=== PATIENT | male | born 1975 | race Caucasian/White ===

== ENCOUNTER 2017-08-04 02:11 | Inpatient (IN) ==
[2017-08-04] MEDS ORDERED: HYDROMORPHONE 2 MG/ML INJECTION IVP ONE (02:31)
[2017-08-04] MEDS ORDERED: PROCHLORPERAZINE 10 MG/2 ML INJECTION IVP ONE (02:31)
[2017-08-04] MEDS ORDERED: KETOROLAC 30 MG/ML INJECTION IVP ONE (02:31)
[2017-08-04] MEDS ORDERED: NS 1,000 ML IV ONE (02:32)
--- NOTE | 2017-08-04 02:38 | Emergency Department Report ---
Abdominal Pain HPI - General Stated Complaint: Severe abd pain Time Seen by Provider: 08/04/17 02:14 Source: patient, family ( is also interpreting when patient does not know the correct word) Mode of arrival: ambulatory Limitations: language barrier - History of Present Illness HPI narrative: Patient has 2 day history of right lower quadrant abdominal pain, significantly worse tonight, especially with movement or trying to lay flat. Patient has been having mild nausea but without vomiting. No fevers, no constipation, no diarrhea. MD complaint: abdominal pain Onset (ago): day(s) Severity: severe Severity scale (1-10): 10 - Related Data Home Medications Medication Instructions Recorded Confirmed Isoniazid 300 mg PO DAILY #0 01/23/09 Pyridoxine HCl (Vitamin B6) 50 mg PO DAILY #0 01/23/09 [Pyridoxine HCl] Sucralfate 1 g PO QID #0 01/23/09 Allergies Allergy/AdvReac Type Severity Reaction Status Date / Time No Known Drug Allergies Allergy Unknown Verified 08/04/17 03:42 Review of Systems All systems: reviewed and negative except as stated PFSH none Surgical History: none - Social History Smoking status: Never smoker Substance use type: does not use Alcohol intake frequency: does not drink Physical Exam - Limitations Limitations: no limitations - General General appearance: alert - Normal Exams: Head:: Normocephalic without trauma Eyes:: Pupils are PERRLA w/ EOMI, No scleral icterus, irritation, or foreign bodies noted ENMT:: No facial trauma, nasal exudates, pharyngeal erythema, or exudates are noted Neck:: Full range of motion, without adenopathy, JVD, bruits or thyromegaly Chest/Respirations:: Clear all cervantes, with good airflow, and symmetry bilaterally Cardiovascular:: Regular rate and rhythm, without murmur or gallop, Pulses 2+ all extremities, capillary refill, <2 seconds all extremities Lymphatic:: No lymphadenopathy, or lymphedema noted Musculoskeletal:: No tenderness, or deformity noted, good range of motion, all extremities Integumentary:: No rashes, hives, or bruising noted, hair and nails, without abnormality Neurological:: Patient is alert, and oriented, cranial nerves, motor/sensory/ cerebellar, exams w/o gross deficits, to observation Psychiatric:: Patient exhibits, appropriate attention, emotion and affect - Abdominal Exam Abdominal exam: Present: soft, distention, tenderness (significant right lower quadrant tenderness with left to right referral), guarding, rebound, hypoactive bowel sounds. Absent: trauma, incision, psoas sign, obturator sign, Hewitt's sign, Rovsing's sign, tenderness at McBurney's Point, mass, bruit, pulsatile mass, hernia, scar Abdominal Pain - [facility] Narrative Medical decision making narrative: Given Toradol, Compazine, and 0.5 mg Dilaudid with 1 L normal saline IV fluid bolus - CBC - significant elevation of white blood cell count at 18,000, minimal left shift CMP/L - normal UA - CT abdomen/pelvis - positive appendicitis with dilated appendix, thickened appendiceal [place], and significant periappendiceal inflammatory changes. Patient discussed with Dr. Madrigal, will admit for acute appendicitis - Lab Data Result diagrams: 08/04/17 02:43 08/04/17 02:43 Disposition Clinical Impression: Appendicitis Qualifiers: Appendicitis type: acute appendicitis Acute appendicitis type: with localized peritonitis Qualified Code(s): K35.3 - Acute appendicitis with localized peritonitis Disposition: 02 To [facility] Condition: Improved Prescriptions: No Action Isoniazid 300 mg PO DAILY #0 Pyridoxine HCl (Vitamin B6) [Pyridoxine HCl] 50 mg PO DAILY #0 Sucralfate 1 g PO QID #0 Referrals: Michel Maldonado MD [Family Provider] - - Seen By: physician
[2017-08-04] MEDS ORDERED: SALINE FLUSH 10ml SYRINGE ONE (03:10)
[2017-08-04] MEDS ORDERED: IOHEXOL 300mg/ml 100ml INJECTION ONE (03:10)
[2017-08-04] MEDS ORDERED: NS 100 ML ONE (03:10)
[2017-08-04] MEDS ORDERED: ONDANSETRON 4 MG/2 ML INJECTION IVP PRN ×2 (04:06→10:18)
[2017-08-04] MEDS ORDERED: NS 1,000 ML IV SCH (04:15)
[2017-08-04 04:59] VITALS: BMI 23.1
[2017-08-04] MEDS ORDERED: ERTAPENEM 1 G in NS 100 ML IV ONE (07:30)
[2017-08-04] MEDS ORDERED: ACETAMINOPHEN 325 MG SUPPOSITORY PR ONE (07:30)
[2017-08-04] MEDS ORDERED: BUPIVACAINE 0.25% (2.5mg/ml) PF 30ml INJECTION ONE (07:48)
--- NOTE | 2017-08-04 07:59 | CT Scan Report ---
Indication: RLQ pain PROCEDURE: CT abdomen pelvis w con: Encounter: Initial Comparison: None Technique: Axial CT images were performed through the abdomen and pelvis after the administration of intravenous contrast. Coronal and sagittal two-dimensional reformats. Automated Exposure Control and Iterative Reconstruction dose reducing techniques were utilized. Contrast: Omnipaque 300 89 mL Findings: Mild atelectasis in the lung bases. The liver appears normal. The gallbladder is unremarkable. Small hiatal hernia. The spleen, pancreas, adrenal glands and kidneys are within normal limits. No abdominal or pelvic lymphadenopathy. Bladder is normal. Prostate and rectum are unremarkable. No evidence of a bowel obstruction. Fluid-filled small and large bowel. There is an enlarged inflamed appendix with wall thickening present. This measures up to 11 mm in thickness and has adjacent inflammatory stranding and a small amount of fluid along the right lateral conal fascia. Small amount of free pelvic fluid also noted. Bone windows show mild degenerative change in the spine. Impression: Acute appendicitis with possible perforation. Emergent surgical consultation is recommended. There is a preliminary report by [employer]. .
--- NOTE | 2017-08-04 08:10 | Anesthesia Preoperative Report ---
Anesthesia Preoperative Record - Date and Time Date: 08/04/17 Preoperative Diagnosis: Acute Appendicitis Proposed Procedure: Lap Appy NPO Since Date: 08/04/17 NPO Since Time: 00:00 Allergies/Adverse Reactions: Allergies Allergy/AdvReac Type Severity Reaction Status Date / Time No Known Drug Allergies Allergy Unknown Verified 08/04/17 03:42 - Vital Signs Vital Signs: Temperature 103.2 F H 08/04/17 07:10 Pulse Rate 100 08/04/17 07:10 Respiratory Rate 16 08/04/17 07:10 Blood Pressure 136/73 08/04/17 07:10 Pulse Oximetry 95 08/04/17 07:10 Height and Weight: Height 1.73 m Weight 69 kg Body Mass Index 23.1 - Medications Inpatient Medications: Current Medications Hydromorphone HCl (Dilaudid) 0.5 mg IVP Q3H PRN PRN Reason: Pain Sodium Chloride (Normal Saline) 1,000 mls @ 75 mls/hr IV .[id number] DIONY Last Infusion: 08/04/17 08:03 Dose: 0 mls/hr Ondansetron HCl (Zofran) 4 mg IVP Q6H PRN PRN Reason: Nausea &/or vomiting Sodium Chloride (Iv Flush) 10 - 80 ml IVF PRN PRN PRN Reason: [place] Home Medications: Home Medications Medication Instructions Recorded Confirmed Type No known Home medications [No home 08/04/17 08/04/17 History meds] Is Patient on Beta [place]?: No - Surgical History Anesthesia Reactions: None Hx Family Anesthesia Reaction: No History of Motion Sickness: No - Social History Smoking Status: Never smoker Hx Chewing Tobacco Use: No Second Hand Exposure: No Alcohol Intake Frequency: 0-2 drinks per day - Pertinent Findings EKG Rhythm: Normal Sinus Rhythm - Physical Exam Respiratory Exam: Present: lungs clear Cardiovascular Exam: Present: regular rate and rhythm - Airway Assessment Mallampati Score: II TMD: 3 Fingerbreadths Neck Extension: good Overall Assessment: no airway concerns - ASA ASA Score: 2 - Plan Anesthesia: General Inhalation Gases - Discussion Discussion: Discussed risks/options/alternatives of anesthesia and questions answered. Patient consents. Nursing pain assessment noted. Present for Discussion: family member Attestation Statement: Prior to the delivery of any anesthetic medication, I examined the patient, developed the plan, obtained the patient's consent and discussed the risk and benefits of the procedure with the patient/guardian. - Additional Information Seen by Anesthesia: Yes
[2017-08-04] MEDS ORDERED: PROPOFOL 20 ML ONE (08:20)
[2017-08-04] MEDS ORDERED: SUCCINYLCHOLINE 20mg/mL 10mL INJECTION ONE (08:20)
[2017-08-04] MEDS ORDERED: VECURONIUM 10 MG/10 ML VIAL IV ONE (08:20)
[2017-08-04] MEDS ORDERED: LIDOCAINE 2% (100mg/5mL) PF 5ml vl ONE (08:20)
[2017-08-04] MEDS ORDERED: FentaNYL 100 MCG/2 ML INJECTION ONE (08:21)
[2017-08-04] MEDS: NS 1,000 ML IV SCH ×2 (08:26→09:35)
--- NOTE | 2017-08-04 09:09 | History and Physical ---
HPI This patient is 42 years old. This patient developed the onset of abdominal pain on the evening of 08/01/2017. The patient continued to have the pain on and 08/03/2017. The pain did localize down to the right lower quadrant of the abdomen during this time. The patient had some mild nausea but no vomiting. He had no diarrhea. The patient did come into [facility] Emergency Room for evaluation of the abdominal pain early on the morning of 08/04/2017. The patient was found to have leukocytosis at evaluation at the emergency room. The patient did undergo a CT scan of the abdomen and pelvis during evaluation at the emergency room and the CT scan of the abdomen and pelvis does show acute appendicitis. PAST MEDICAL HISTORY Previous Operations: None. OTHER CURRENT MEDICAL PROBLEMS Nicotine dependence. SOCIAL HISTORY The patient lives in [place], [place]. He is . He works for [employer]. The patient does smoke cigarettes. CURRENT MEDICATIONS None. ALLERGY HISTORY The patient has no known allergies to medications. PHYSICAL EXAMINATION VITAL SIGNS: Temperature is 103.2 degrees Fahrenheit. Pulse is 100. Respiratory rate is 16. Blood pressure is 136/73. Oxygen saturation is 95% on room air. Height is 1.73 meters. Weight is 69 kg. BMI is 23.1 kg/m2. HEAD , EYES, EARS, NOSE AND THROAT: No abnormalities noted. NECK: No neck masses. CHEST: Lung sounds are clear. HEART: Regular rhythm. No murmurs. ABDOMEN: The abdomen is soft. No old incision scars. No abdominal masses. The patient does have generalized abdominal tenderness. The tenderness is most pronounced at the right lower quadrant of the abdomen. RECTUM: Exam deferred. EXTREMITIES: No abnormalities noted. LABORATORY DATA White blood cell count is 18,400. Total bilirubin was 1.4. AST, ALT and alkaline phosphatase were all normal. Serum lipase is 19. Serum electrolytes are normal. Serum creatinine is 0.9. Hemoglobin is 16.1. Hematocrit is 46.7. IMAGING DATA The patient did undergo a CT scan of the abdomen and pelvis early on the morning of 08/04/2017 at [facility]. This does show a dilated appendix with thickening of the wall of the appendix and adjacent inflammatory changes at the right lower quadrant of the abdomen. These findings are thought to be consistent with acute appendicitis. There is no abscess identified. There is a small amount of free fluid. There is no free air identified. IMPRESSION 1. Acute appendicitis. 2. Nicotine dependence. PATIENT EDUCATION I did talk with the patient and his about treatment of the acute appendicitis. I did describe to them [id number] the nature of a laparoscopic appendectomy operation. I did tell the patient and his that the laparoscopic appendectomy operation might need to be converted over to a laparotomy with open appendectomy operation. I did describe to them how this is performed. Expected benefits of the operation were reviewed. Alternatives were reviewed. Potential risks and complications were also reviewed including anesthetic risk, bleeding, infection, poor wound healing and injury to intraabdominal and retroperitoneal structures. Questions were solicited from the patient and his . All their questions were answered. The patient and his do wish to have the patient proceed with the operation. PLAN Laparoscopic appendectomy with possible conversion to laparotomy with open appendectomy by Dr. Madrigal at [facility]. The patient has been given intravenous fluids. The patient has been given intravenous Invanz. The patient is being kept n.p.o. [facility]
[2017-08-04] MEDS ORDERED: HYDROMORPHONE 2 MG/ML INJECTION ONE (09:10)
[2017-08-04] MEDS ORDERED: DEXAMETHASONE 4 MG/ML INJECTION ONE (09:22)
[2017-08-04] MEDS ORDERED: ONDANSETRON 4 MG/2 ML INJECTION ONE (09:22)
[2017-08-04] MEDS ORDERED: BUPIVACAINE 0.25% (2.5mg/ml) PF 30ml INJECTION ID ONE (09:39)
[2017-08-04] MEDS ORDERED: DESFLURANE 240ml LIQUID IH ONE (09:56)
[2017-08-04] MEDS ORDERED: SEVOFLURANE 250ml LIQUID IH ONE (09:58)
[2017-08-04] MEDS ORDERED: NEOSTIGMINE 10 MG/10 ML INJECTION ONE (10:05)
[2017-08-04] MEDS ORDERED: GLYCOPYRROLATE 0.4 MG/2 ML INJECTION ONE (10:05)
--- NOTE | 2017-08-04 10:06 | General Surgery Procedure Note ---
Date of Procedure: 08/04/17 Surgeon: Kaitlin Postoperative Diagnosis: Acute appedicitis with perforation Procedure: Laparoscopic appendectomy. Estimated Blood Loss: See Anesthesia Record.
[2017-08-04] MEDS ORDERED: NALOXONE 0.4 MG/ML INJECTION ONE (10:13)
[2017-08-04] MEDS ORDERED: HYDROMORPHONE 2 MG/ML INJECTION IVP PRN (10:18)
[2017-08-04] MEDS ORDERED: METOCLOPRAMIDE 10mg/2ml INJECTION IVP PRN (10:18)
[2017-08-04] MEDS: HYDROMORPHONE 2 MG/ML INJECTION IVP PRN ×2 (10:38→10:47)
--- NOTE | 2017-08-04 10:56 | Anesthesia Postoperative Note ---
- Date and Time Date: 08/04/17 Time: 00:00 - Status Patient Participated in Evaluation: Patient Participated in Person Vital Signs: Temperature 99.4 F 08/04/17 10:15 Pulse Rate 90 08/04/17 10:50 Respiratory Rate 13 08/04/17 10:50 Blood Pressure 129/68 08/04/17 10:50 Pulse Oximetry 96 08/04/17 10:50 Respiratory Function: Airway Patent Cardiovascular Function: Regular Pulse Mental Status: Alert and Oriented Pain Intensity: 5 Hydration: IV Infusing Complications During Recover: None Apparent - Follow-Up Instructions Instructions: Per Surgeon
[2017-08-04] MEDS ORDERED: PROMETHAZINE 25 MG INJECTION IVP PRN (11:10)
[2017-08-04] MEDS ORDERED: FAMOTIDINE PB 20 MG/50 ML BAG IV SCH (11:10)
[2017-08-04] MEDS: D5-1/2NS with KCL 20mEq 1,000 ML IV SCH ×2 (11:28→23:32)
[2017-08-04] MEDS: PIPERACILLIN/TAZOBACTAM 3.375 GM in NS 100 ML IV SCH ×3 (11:42→23:41)
[2017-08-04] MEDS: FAMOTIDINE PB 20 MG/50 ML BAG IV SCH ×2 (12:33→20:52)
[2017-08-04] MEDS: MORPHINE SULFATE 10 MG SYRINGE IV PRN ×2 (15:31→19:34)
--- NOTE | 2017-08-04 15:51 | Operative Note ---
DATE OF OPERATION 08/04/2017 PREOPERATIVE DIAGNOSIS Acute appendicitis. POSTOPERATIVE DIAGNOSIS Acute appendicitis with perforation and periappendiceal abscess. OPERATION Laparoscopic appendectomy. SURGEON Dixon Madrigal MD ANESTHESIA General ASA CLASS 2 FINDINGS The patient did have severe advanced acute appendicitis. The entire appendix appeared necrotic. There was an opening at the base of the appendix from perforation of the appendix. There was stool coming out through this opening of the appendix into the peritoneal cavity. The appendix and the stool that had come out around the appendix was walled off. The patient had a periappendiceal abscess filled with stool. One wall of this abscess was the cecum. The cecum was therefore thickened and inflamed and firm. The cecum was not soft and pliable. There was a walled off periappendiceal abscess with stool in it. There was some purulent fluid in the pelvis. There did not appear to be generalized peritonitis. Loops of intestine out a ways from the appendix appeared normal. The liver appeared normal. The gallbladder appeared normal. DESCRIPTION OF OPERATION The patient was placed in the supine position on the operating table. General anesthesia was satisfactorily induced. A Jain catheter was inserted into the urinary bladder. The abdomen was prepped and draped in routine sterile fashion. The skin and underlying structures at the abdominal wall at an infraumbilical incision site were infiltrated with bupivacaine 0.25% without epinephrine. An infraumbilical incision was made. A Veress needle was inserted into the peritoneal cavity through the incision. Pneumoperitoneum was established with carbon dioxide. The Veress needle was removed. A 5 mm port was placed at the infraumbilical incision. The 5 mm laparoscope was inserted through the 5 mm infraumbilical port. The skin and underlying abdominal wall structures were infiltrated with bupivacaine at the lateral margin of the right rectus abdominis muscle at the right upper quadrant of the abdomen at another incision site. An incision was made at this location and a 5 mm port was placed at the right upper quadrant abdominal incision. The skin and underlying abdominal wall structures were infiltrated with bupivacaine at a suprapubic incision site. A suprapubic incision was made at the midline. A 12 mm port was placed at the suprapubic incision. The peritoneal cavity was examined with the laparoscope. The operating table was placed in Trendelenburg position. The right side of the operating table was rolled up. Structures at the right lower quadrant of the abdomen which were adherent to one another were bluntly from one another with the suction irrigation device and the endoscopic [place] forceps. The appendix was exposed. The appendix was grasped and elevated with the endoscopic [place] forceps inserted at the suprapubic port. The appendix and mesoappendix were bluntly dissected free of surrounding structures. An opening was visualized near the base of the appendix with stool pouring out of the opening. There did appear to be a collection of walled off stool around the appendix where the patient had a periappendiceal abscess. The peritoneum at the inferior end of the right lateral gutter along the white line of [place] was divided with the curved dissecting scissors. The cecum and proximal ascending colon were then mobilized up away from the right lateral abdominal wall. This did mobilize the cecum up anteriorly and medially. The appendix was again grasped and elevated with the endoscopic [place] forceps inserted at the suprapubic port. The mesoappendix was divided with the Ethicon brand 5 mm laparoscopic ultrasonically activated coagulating fawn. This was the Harmonic Martir ultrasonic fawn. This instrument was introduced at the right upper quadrant port. The mesoappendix was coagulated and divided with the Ethicon brand 5 mm laparoscopic ultrasonically activated coagulating fawn. The appendix was completely freed up in this manner to the point where the base of the appendix joined the cecum. The base of the appendix at the point where it joined the cecum did appear to be viable enough that some Endoloop ligatures could be applied to the base of the appendix adjacent to the cecum. The appendix distally beyond this point was necrotic but there did appear to be some good quality viable appendix at the base of the appendix where it joined to the cecum. Two separate 0 PDS Endoloop ligatures were applied to the base of the appendix adjacent to the cecum. The appendix was then divided just beyond these ligatures with the curved dissecting scissors. The appendix was placed in a specimen retrieval pouch. The specimen retrieval pouch containing the appendix was brought out through the suprapubic incision. The appendix was submitted as a specimen for study by the pathologist. The 12 mm port was reinserted at the suprapubic incision. The appendectomy site looked good. The appendiceal stump was carefully examined at this time and the appendiceal stump looked good. The appendiceal stump looked viable. Hemostasis was satisfactory at the appendectomy site. Irrigation was then performed throughout the right lower quadrant of the abdomen around the cecum. Irrigation was performed at the periappendiceal abscess cavity site. Irrigation was performed down in the pelvis and down at the pelvic cul-de-sac area. Irrigation was performed at the right lateral gutter. Irrigation fluid was removed. Irrigation was continued until all the irrigation return was clear. Hemostasis remained satisfactory everywhere. The suprapubic port was removed. The right upper quadrant port was removed. The laparoscope was removed. The infraumbilical port was removed. Carbon dioxide was removed from the peritoneal cavity by desufflation. The fascial layer of the suprapubic incision was closed with a series of simple interrupted stitches using 0 Vicryl suture. Skin margins were then closed at all the incisions with subcuticular stitches using 4-0 Vicryl suture. Benzoin and 1/2-inch wide Steri-Strips were applied to the incisions. Sterile dressings were applied. The patient tolerated the operation well. The patient was transferred from the operating room to the recovery room in satisfactory condition. JOSE
[2017-08-05] MEDS: PIPERACILLIN/TAZOBACTAM 3.375 GM in NS 100 ML IV SCH ×4 (04:18→23:37)
[2017-08-05] MEDS: MORPHINE SULFATE 10 MG SYRINGE IV PRN ×7 (04:55→21:20)
[2017-08-05] MEDS: FAMOTIDINE PB 20 MG/50 ML BAG IV SCH ×2 (08:50→21:15)
[2017-08-05] MEDS: SALINE FLUSH 10ml SYRINGE IVF PRN ×3 (11:19→21:21)
[2017-08-05] MEDS: D5-1/2NS with KCL 20mEq 1,000 ML IV SCH ×3 (12:34→23:37)
[2017-08-05] MEDS: ONDANSETRON 4 MG/2 ML INJECTION IVP PRN (20:18)
[2017-08-06] MEDS: MORPHINE SULFATE 10 MG SYRINGE IV PRN ×6 (01:53→21:24)
[2017-08-06] MEDS: KETOROLAC 30 MG/ML INJECTION IVP PRN ×3 (04:30→17:58)
[2017-08-06] MEDS: PIPERACILLIN/TAZOBACTAM 3.375 GM in NS 100 ML IV SCH ×4 (05:15→23:50)
[2017-08-06] MEDS: FAMOTIDINE PB 20 MG/50 ML BAG IV SCH ×2 (08:53→21:24)
--- NOTE | 2017-08-06 09:21 | Progress Note ---
DATE 08/05/2017 POSTOP DAY #1 HISTORY The patient is having less pain than he had at the time of admission to the hospital. He has been doing quite a bit of ambulating in the halls. He is receiving intravenous Zosyn. The patient has not passed any flatus or had a bowel movement since the operation. He is not having any nausea or vomiting. PHYSICAL EXAMINATION VITAL SIGNS: Temperature is 99.5 degrees Fahrenheit oral. Pulse is 86. Respiratory rate is 20. Blood pressure 139/84. Oxygen saturation is 94% on room air. ABDOMEN: The abdomen is distended and tympanic. The abdominal incisions all look good. LABORATORY DATA White blood cell count is 11,000 today with 10 bands. Hemoglobin is 13.4. Hematocrit is 39.4. Platelet count is 116,000. The blood cultures on a specimen obtained preoperatively yesterday are negative at 24 hours. There is no growth after 24 hours on these blood cultures obtained at the time when the patient had a temperature elevation up to 103 degrees. IMPRESSION 1. Doing well overall following laparoscopic appendectomy on 08/04/2017 for treatment of acute appendicitis with perforation and periappendiceal abscess. 2. Thrombocytopenia. PLAN 1. Continue intravenous Zosyn every 6 hours. 2. Continue ambulation. 3. Start a clear liquid diet. 4. Continue sequential compression devices for deep venous thrombosis prophylaxis. 5. Continue to monitor temperature and white blood cell count and differential. 6. Recheck platelet count tomorrow. [facility]
[2017-08-06] MEDS: D5-1/2NS with KCL 20mEq 1,000 ML IV SCH (13:00)
[2017-08-06] MEDS ORDERED: ACETAMINOPHEN 325 MG TABLET PO PRN (16:38)
[2017-08-06] MEDS: SALINE FLUSH 10ml SYRINGE IVF PRN ×2 (16:46→21:26)
[2017-08-07] MEDS: D5-1/2NS with KCL 20mEq 1,000 ML IV SCH ×4 (01:51→18:12)
[2017-08-07] MEDS: MORPHINE SULFATE 10 MG SYRINGE IV PRN ×3 (03:34→17:02)
[2017-08-07] MEDS: SALINE FLUSH 10ml SYRINGE IVF PRN ×3 (03:34→22:21)
[2017-08-07] MEDS: ACETAMINOPHEN 500 MG TABLET PO PRN ×2 (04:08→16:24)
[2017-08-07] MEDS: NS FLUSH BAG 500ml IV ONE ×2 (04:09→04:18)
[2017-08-07] MEDS: PIPERACILLIN/TAZOBACTAM 3.375 GM in NS 100 ML IV SCH ×4 (05:24→23:32)
[2017-08-07] MEDS: KETOROLAC 30 MG/ML INJECTION IVP PRN ×3 (07:58→22:21)
[2017-08-07] MEDS: FAMOTIDINE PB 20 MG/50 ML BAG IV SCH ×2 (08:02→22:07)
[2017-08-08] MEDS: MORPHINE SULFATE 10 MG SYRINGE IV PRN ×3 (01:12→20:43)
[2017-08-08] MEDS: SALINE FLUSH 10ml SYRINGE IVF PRN (01:13)
[2017-08-08] MEDS: PIPERACILLIN/TAZOBACTAM 3.375 GM in NS 100 ML IV SCH ×3 (04:40→17:03)
[2017-08-08] MEDS: KETOROLAC 30 MG/ML INJECTION IVP PRN ×3 (05:27→18:10)
[2017-08-08] MEDS: D5-1/2NS with KCL 20mEq 1,000 ML IV SCH ×2 (06:43→16:57)
--- NOTE | 2017-08-08 06:55 | Progress Note ---
DATE 08/06/2017 POSTOP DAY #2 HISTORY The patient did have a temperature elevation up to 100.6 degrees Fahrenheit oral at 2000 hours on 08/05/2017. The patient had a temperature elevation up to 101.3 degrees Fahrenheit oral at 2357 hours on 08/05/2017. A clear liquid diet was started yesterday evening. The clear liquid diet was stopped this morning and the diet was changed back to n.p.o. with ice chips when the patient had some increased abdominal pain and increase in his abdominal distention. The patient is back to an n.p.o. except for ice chips diet at this time. He is ambulating in the halls well. He has really not passed any flatus or had a bowel movement since his operation. He is not having nausea or vomiting. PHYSICAL EXAMINATION VITAL SIGNS: Temperature is 96.7 degrees Fahrenheit oral at the present time. Pulse is 72. Respiratory rate is 24. Blood pressure is 132/85. Oxygen saturation is 95% on room air. ABDOMEN: The abdomen is quite distended and tympanic today. The distention and tympany are worse today than they were yesterday. The abdominal incisions look good. LABORATORY DATA White blood cell count is 10,600 with 2 bands today. Hemoglobin is 14. Hematocrit is 40.5. Serum sodium is 133. Serum potassium is 4.2. Procalcitonin is 2.37 today. Blood cultures on specimens obtained preoperatively on 08/04/2017 show no growth at two days. IMPRESSION 1. Doing well overall following laparoscopic appendectomy on 08/04/2017 for treatment of acute appendicitis with perforation and periappendiceal abscess. 2. Sepsis. 3. Postoperative ileus. PLAN 1. Continue intravenous Zosyn every 6 hours. 2. Continue ambulation. 3. Hold diet to ice chips only until ileus improves. 4. Continue sequential compression devices for deep venous thrombosis prophylaxis. 5. Continue to monitor temperature and white blood cell count with differential and procalcitonin. [facility]
--- NOTE | 2017-08-08 08:01 | Progress Note ---
DATE 08/07/2017 POSTOP DAY #3 HISTORY The patient did have a temperature of 102.4 degrees Fahrenheit oral at 1634 hours yesterday. The patient began passing flatus today. He has passed flatus three or four times. He has had a bowel movement today. The patient continues to ambulate in the halls. The patient continues to receive IV Zosyn. PHYSICAL EXAMINATION VITAL SIGNS: The patient did have a temperature of 101.2 degrees Fahrenheit oral at 0343 hours this morning. Most recent temperature was 98.1 degrees Fahrenheit oral. Pulse is 81. Respiratory rate is 16. Blood pressure is 149/ 97. Oxygen saturation is 97% on room air. ABDOMEN: The abdomen is still quite distended and tympanic today. The abdominal incisions look good. There is abdominal tenderness. LABORATORY DATA White blood cell count is 9,400 with no bands today. Hemoglobin is 13.2. Hematocrit is 37.6. Serum sodium is 136. Serum potassium is 4.1. Serum creatinine is 0.8. Total bilirubin is 2.9. Procalcitonin is 1.12 today. This is much less than yesterday. Plasma lactate is 0.9. IMPRESSION 1. Doing well overall following appendectomy on 08/04/2017 for treatment of acute appendicitis with perforation and periappendiceal abscess. 2. Sepsis which is improving. 3. Postoperative ileus which is beginning to resolve. PLAN 1. Continue intravenous Zosyn every 6 hours. 2. Continue ambulation. 3. Continue to keep patient n.p.o. except for ice chips until the abdominal distention and tympany improve. 4. Continue sequential compression devices for deep venous thrombosis prophylaxis. 5. Continue to monitor temperature, white blood cell count and procalcitonin. [facility]
[2017-08-08] MEDS: FAMOTIDINE PB 20 MG/50 ML BAG IV SCH ×2 (08:31→20:48)
[2017-08-08] MEDS: ACETAMINOPHEN 500 MG TABLET PO PRN (08:31)
[2017-08-08] MEDS: ONDANSETRON 4 MG/2 ML INJECTION IVP PRN (12:42)
[2017-08-08] MEDS ORDERED: PPN - PHARMACY CONSULT MC ONE (16:40)
[2017-08-08] MEDS ORDERED: MULTI-VIT INFUSION 10 ML, MULTI-TRACE ELEMENTS 1 ML in PPN - STANDARD FORMULA 2,000 ML IV SCH (18:00)
[2017-08-08] MEDS: MULTI-VIT INFUSION 10 ML, MULTI-TRACE ELEMENTS 1 ML in PPN - STANDARD FORMULA 2,000 ML IV SCH (18:31)
[2017-08-08] MEDS: METOCLOPRAMIDE 10mg/2ml INJECTION IVP SCH (20:43)
[2017-08-09] MEDS: KETOROLAC 30 MG/ML INJECTION IVP PRN ×3 (00:16→19:53)
[2017-08-09] MEDS: PIPERACILLIN/TAZOBACTAM 3.375 GM in NS 100 ML IV SCH ×5 (00:19→23:21)
[2017-08-09] MEDS: METOCLOPRAMIDE 10mg/2ml INJECTION IVP SCH ×4 (03:25→20:14)
[2017-08-09] MEDS: MORPHINE SULFATE 10 MG SYRINGE IV PRN ×2 (03:34→07:53)
[2017-08-09] MEDS: ACETAMINOPHEN 500 MG TABLET PO PRN ×2 (06:19→13:38)
--- NOTE | 2017-08-09 07:53 | Progress Note ---
DATE 08/08/2017 POSTOP DAY #4 HISTORY The patient has now been afebrile for the past 24 hours. The patient did have two or three more bowel movements today. The patient did, however, have some nausea and dry heaves today. The patient continues to receive intravenous Zosyn. The patient is ambulating. The patient is still using intravenous morphine for treatment of gas pains. PHYSICAL EXAM VITAL SIGNS: The patient has now been afebrile for the last 24 hours. Temperature is 97.4 degrees Fahrenheit oral. Pulse is 73. Respiratory rate is 16. Blood pressure is 135/91. Oxygen saturation is 98% on room air. ABDOMEN: The abdomen is very distended and tympanic again today. This is not improved since yesterday. The abdominal incisions all look good. LABORATORY DATA White blood cell count is 8,600 with no bands today. Procalcitonin is 0.68 today. IMPRESSION 1. Doing well overall following laparoscopic appendectomy on 08/04/2017 for treatment of acute appendicitis with perforation and periappendiceal abscess. 2. Sepsis which is improving. 3. Prolonged postoperative ileus with nausea, dry heaves, abdominal distention and abdominal tympany. PLAN 1. Continue intravenous Zosyn every 6 hours. 2. Continue ambulation. 3. Continue to keep patient n.p.o. except for ice chips until the nausea, dry heaves, abdominal distention and abdominal tympany improve. 4. Continue sequential compression devices for deep venous thrombosis. 5. Continue to monitor temperature, white blood cell count and procalcitonin. 6. Stop the D5 half-normal saline with 20 mEq KCl per liter and start the patient on PPN at this time for nutritional support. 7. Start Reglan 10 mg IV every 6 hours. MTDD
--- NOTE | 2017-08-09 08:21 | XRay Report ---
Indication: Postop ileus PROCEDURE: XR KUB w upright: Encounter: Initial Comparison: CT abdomen dated August 04, 2017 Findings: Small pleural effusions and lower lobe atelectasis. No gross free air. Dilated small bowel loops with air-fluid levels measuring up to 4 cm in the left abdomen. Scattered small amounts of colonic gas also present. Bone windows are unremarkable. Impression: Small greater than large bowel distention with air-fluid levels could represent postoperative ileus or less likely small bowel obstruction. .
[2017-08-09] MEDS: FAMOTIDINE PB 20 MG/50 ML BAG IV SCH ×2 (09:52→20:14)
--- NOTE | 2017-08-09 14:32 | Progress Note ---
DATE 08/09/2017 POSTOP DAY #5 HISTORY The patient is ambulating. The patient continues to pass some flatus. The patient continues to receive intravenous Zosyn. PHYSICAL EXAMINATION VITAL SIGNS: The patient has been afebrile for the last 24 hours. The most recent temperature is 99.4 degrees Fahrenheit oral. Pulse is 79. Respiratory rate is 20. Blood pressure is 151/88. Oxygen saturation is 97% on room air. ABDOMEN: The abdomen remains distended and tympanic. The abdomen is soft. The patient has active bowel sounds. The abdominal incisions look good. LABORATORY DATA White blood cell count is 8600 with 1 band. Electrolytes are all normal. Serum creatinine is 0.8. Procalcitonin is 0.38. IMAGING DATA KUB and upright abdominal x-rays were performed this morning. These show dilated small bowel loops with air-fluid levels. There are some scattered small amounts of gas present throughout the colon. The radiologist thought that the appearance would be most consistent with postoperative ileus. Small bowel obstruction would be a less likely explanation for the bowel gas pattern. IMPRESSION 1. Doing well overall following laparoscopic appendectomy on 08/04/2017 for treatment of acute appendicitis with perforation and periappendiceal abscess. 2. Prolonged postoperative ileus. PLAN 1. Continue intravenous Zosyn every 6 hours. 2. Continue ambulation. 3. Continue sequential compression devices for deep venous thrombosis prophylaxis. 4. Continue PPN for nutritional support. 5. Continue Reglan 10 mg IV every 6 hours. 6. Start clear liquid diet again today and see how patient tolerates this. 7. Stop intravenous morphine and transition to Toradol which the patient is already receiving and Tylenol for pain control. This would stop all postop narcotic pain control to try to help the ileus resolve. [facility]
[2017-08-09] MEDS ORDERED: FAT EMULSION 20% 100 ML BAG IV SCH (16:00)
[2017-08-09] MEDS: SALINE FLUSH 10ml SYRINGE IVF PRN (16:32)
[2017-08-09] MEDS: FAT EMULSION 20% 100 ML IV SCH (16:32)
[2017-08-09] MEDS: MULTI-VIT INFUSION 10 ML, MULTI-TRACE ELEMENTS 1 ML in PPN - STANDARD FORMULA 2,000 ML IV SCH (16:44)
[2017-08-10] MEDS: ACETAMINOPHEN 500 MG TABLET PO PRN ×2 (03:54→16:32)
[2017-08-10] MEDS: METOCLOPRAMIDE 10mg/2ml INJECTION IVP SCH ×4 (03:54→22:11)
[2017-08-10] MEDS: PIPERACILLIN/TAZOBACTAM 3.375 GM in NS 100 ML IV SCH (05:25)
[2017-08-10] MEDS: SALINE FLUSH 10ml SYRINGE IVF PRN (05:30)
[2017-08-10] MEDS: KETOROLAC 30 MG/ML INJECTION IVP PRN (06:48)
[2017-08-10] MEDS: FAMOTIDINE PB 20 MG/50 ML BAG IV SCH ×2 (08:41→22:10)
[2017-08-10] MEDS: MetroNIDAZOLE PB 500 MG/100 ML BAG IV SCH ×3 (09:42→20:52)
[2017-08-10] MEDS: VANCOMYCIN 250mg/5ml ORAL LIQ PO SCH ×4 (09:43→20:57)
--- NOTE | 2017-08-10 11:44 | Pharmacy Consult-TPN/PPN ---
Pharmacy Consult-TPN/PPN - Laboratory Information Chemistry Turbidity < 20 (0-20) 08/10/17 09:11 Sodium 144 MEQ/L (134-144) 08/10/17 09:11 Potassium 4.0 MEQ/L (3.6-5) 08/10/17 09:11 Chloride 107 MEQ/L (98-107) 08/10/17 09:11 Carbon Dioxide 25 MEQ/L (22-30) 08/10/17 09:11 Anion Gap 12 MEQ/L (5-15) 08/10/17 09:11 BUN 14.0 MG/DL (9-20) 08/10/17 09:11 Creatinine 0.8 MG/DL (0.8-1.5) 08/10/17 09:11 GFR Calculation 105 08/10/17 09:11 BUN/Creatinine Ratio 18 RATIO (6-26) 08/10/17 09:11 Glucose 108 MG/DL (75-110) 08/10/17 09:11 Glucometer 99 mg/dL (65-110) 08/10/17 06:36 Calculated Osmolality 279 MOSM/KG (261-280) 08/10/17 09:11 Calcium 9.5 MG/DL (8.4-10.2) 08/10/17 09:11 Phosphorus 3.3 MG/DL (2.5-4.5) 08/08/17 17:13 Total Bilirubin 1.30 MG/DL (0.20-1.30) 08/08/17 04:43 Conjugated Bilirubin 0.00 MG/DL (0.00-0.30) 08/04/17 02:43 Unconjugated Bilirubin 1.00 MG/DL (0.00-11.10) 08/04/17 02:43 Icterus Index < 2 (0-7) 08/10/17 09:11 AST 19 U/L (17-59) 08/08/17 04:43 ALT 39 U/L (21-72) 08/08/17 04:43 Alkaline Phosphatase 89 U/L (38-126) 08/08/17 04:43 Total Protein 6.7 G/DL (6.3-8.2) 08/08/17 04:43 Albumin 3.3 G/DL (3.5-5.0) L 08/08/17 04:43 Globulin 3.4 G/DL (2.4-3.6) 08/08/17 04:43 Albumin/Globulin Ratio 1.0 RATIO (1.1-2.2) L 08/08/17 04:43 Lipase 19 U/L (23-300) L 08/04/17 02:43 Plasma Lactate 0.8 MMOL/L (0.6-2.2) 08/08/17 04:43 Procalcitonin 0.38 NG/ML 08/09/17 04:29 Specimen Hemolysis < 15 (0-25) 08/10/17 09:11 Intake and Output 08/09/17 08/10/17 08/11/17 06:59 06:59 06:59 Intake Total 1858.334 / 5161.316 2831.999 / 4054.999 368.333 / 368.333 Output Total 1725 / 1725 600 / 600 Balance 133.334 / 223.806 1067.999 / 3454.999 368.333 / 368.333 Weight 69.1 kg 96.9 kg 68.4 kg Intake: IV 1648.334 / 4352.549 6848.999 / 3354.999 368.333 / 368.333 D5-1/2NS with KCL 20mEq 1 920.001 / 920.001 ,000 ML @ 100 mls/hr IV . Q10H [facility] Rx#:[id number] PEPCID PREMIX 20 mg In 50 100 / 100 100 / 100 50 / 50 ml @ 100 mls/hr IV Q12HR [facility] Rx#:[id number] Intralipid 20% 100 ml @ 100 / 100 50 mls/hr IV 1600 [facility] Rx# :[id number] FLAGYL IV PREMIX 500 mg 100 / 100 In 100 ml @ 100 mls/hr IV Q8H [facility] Rx#:[id number] Infuvite Adult 10 ml 228.333 / 071.632 9458.999 / 2754.999 218.333 / 218.333 Multi-Trace Elements 1 ml In Ppn - Standard Formula 2,000 ml @ 100 mls/hr IV .Q20H7M [facility] Rx# :[id number] Zosyn 3.375 gm In Normal 400 / 400 400 / 400 Saline 100 ml @ 200 mls/ hr IV Q6H [facility] Rx#: [id number] Oral 210 / 210 700 / 700 Output: Urine 1725 / 1725 600 / 600 Other: Urine Appearance Clear Clear Urine Color Pale Yellow Urine Odor Normal Normal Stool Color Brown Brown Brown Stool Consistency Soft Liquid Liquid Loose Emesis Description Clear Bile Size of Bowel Movement Small Small Moderate # Voids 1 1 1 # Bowel Movements 1 1 1 # Unmeasured Emesis 1 Episodes - Consult Information We are noting a slight increase in serum sodium and osmolality over the past 3 labs. We will continue present standard PPN formula at the rate of 100mL per hour for today. We will consider adding sterile water for injection 250mL to PPN bag tomorrow if sodium and osmolality trend continue. Thanks
[2017-08-10] MEDS: MULTI-VIT INFUSION 10 ML, MULTI-TRACE ELEMENTS 1 ML in PPN - STANDARD FORMULA 2,000 ML IV SCH (16:27)
[2017-08-10] MEDS: FAT EMULSION 20% 100 ML IV SCH (16:28)
[2017-08-11] MEDS: METOCLOPRAMIDE 10mg/2ml INJECTION IVP SCH ×4 (02:53→21:18)
[2017-08-11] MEDS: MetroNIDAZOLE PB 500 MG/100 ML BAG IV SCH ×3 (05:18→21:22)
[2017-08-11] MEDS: FAMOTIDINE PB 20 MG/50 ML BAG IV SCH ×3 (08:30→22:23)
[2017-08-11] MEDS: VANCOMYCIN 250mg/5ml ORAL LIQ PO SCH ×4 (08:36→21:19)
--- NOTE | 2017-08-11 09:11 | XRay Report ---
Indication: Postop ileus PROCEDURE: XR KUB w upright: Encounter: Initial Comparison: August 09, 2017 Findings: Interval worsening in small bowel dilatation in the left abdomen. There are now differential air-fluid levels present with small bowel loops measuring up to 5.9 cm in diameter. There is interval decrease in colonic gas compared to the prior study. Continued left lower lobe airspace opacity. No free air. Impression: Increasing small bowel dilatation with decreasing colonic gas concerning for developing small bowel obstruction. Atypical ileus is also possible. .
[2017-08-11] MEDS ORDERED: DIATRIZOATE MEGLUMINE/SOD. (66%/10%) 120ml SOLN ONE (09:49)
[2017-08-11] MEDS: MULTI-VIT INFUSION 10 ML, MULTI-TRACE ELEMENTS 1 ML in PPN - STANDARD FORMULA 2,000 ML IV SCH (14:23)
--- NOTE | 2017-08-11 14:46 | Pharmacy Consult-TPN/PPN ---
Pharmacy Consult-TPN/PPN - Laboratory Information Chemistry Turbidity < 20 (0-20) 08/11/17 04:23 Sodium 142 MEQ/L (134-144) 08/11/17 04:23 Potassium 4.5 MEQ/L (3.6-5) 08/11/17 04:23 Chloride 110 MEQ/L (98-107) H 08/11/17 04:23 Carbon Dioxide 21 MEQ/L (22-30) L 08/11/17 04:23 Anion Gap 11 MEQ/L (5-15) 08/11/17 04:23 BUN 14.0 MG/DL (9-20) 08/11/17 04:23 Creatinine 0.8 MG/DL (0.8-1.5) 08/11/17 04:23 GFR Calculation 105 08/11/17 04:23 BUN/Creatinine Ratio 18 RATIO (6-26) 08/11/17 04:23 Glucose 106 MG/DL (75-110) 08/11/17 04:23 Glucometer 103 mg/dL (65-110) 08/11/17 05:24 Calculated Osmolality 274 MOSM/KG (261-280) 08/11/17 04:23 Calcium 9.8 MG/DL (8.4-10.2) 08/11/17 04:23 Phosphorus 3.3 MG/DL (2.5-4.5) 08/08/17 17:13 Total Bilirubin 1.30 MG/DL (0.20-1.30) 08/08/17 04:43 Conjugated Bilirubin 0.00 MG/DL (0.00-0.30) 08/04/17 02:43 Unconjugated Bilirubin 1.00 MG/DL (0.00-11.10) 08/04/17 02:43 Icterus Index < 2 (0-7) 08/11/17 04:23 AST 19 U/L (17-59) 08/08/17 04:43 ALT 39 U/L (21-72) 08/08/17 04:43 Alkaline Phosphatase 89 U/L (38-126) 08/08/17 04:43 Total Protein 6.7 G/DL (6.3-8.2) 08/08/17 04:43 Albumin 3.3 G/DL (3.5-5.0) L 08/08/17 04:43 Globulin 3.4 G/DL (2.4-3.6) 08/08/17 04:43 Albumin/Globulin Ratio 1.0 RATIO (1.1-2.2) L 08/08/17 04:43 Lipase 19 U/L (23-300) L 08/04/17 02:43 Plasma Lactate 0.8 MMOL/L (0.6-2.2) 08/08/17 04:43 Procalcitonin 0.38 NG/ML 08/09/17 04:29 Specimen Hemolysis < 15 (0-25) 08/11/17 04:23 Intake and Output 08/10/17 08/11/17 08/12/17 06:59 06:59 06:59 Intake Total 4054.999 / 4054.999 2636.666 / 2636.666 838.333 / 838.333 Output Total 600 / 600 800 / 800 Balance 3454.999 / 3454.999 1836.666 / 1836.666 838.333 / 838.333 Weight 96.9 kg 68.4 kg 66.5 kg Intake: IV 3354.999 / 3354.999 2396.666 / 2396.666 838.333 / 838.333 PEPCID PREMIX 20 mg In 50 100 / 100 100 / 100 ml @ 100 mls/hr IV Q12HR [facility] Rx#:[id number] Intralipid 20% 100 ml @ 100 / 100 100.000 / 100.000 50 mls/hr IV 1600 [facility] Rx# :[id number] FLAGYL IV PREMIX 500 mg 300 / 300 In 100 ml @ 100 mls/hr IV Q8H [facility] Rx#:[id number] Infuvite Adult 10 ml 2754.999 / 2754.999 1896.666 / 1896.666 838.333 / 838.333 Multi-Trace Elements 1 ml In Ppn - Standard Formula 2,000 ml @ 100 mls/hr IV .Q20H7M [facility] Rx# :[id number] Zosyn 3.375 gm In Normal 400 / 400 Saline 100 ml @ 200 mls/ hr IV Q6H [facility] Rx#: [id number] Oral 700 / 700 240 / 240 Output: Urine 600 / 600 800 / 800 Other: Urine Appearance Clear Clear Urine Color Yellow Dark Yellow Urine Odor Normal Stool Color Brown Green Stool Consistency Liquid Liquid Size of Bowel Movement Small Moderate # Voids 1 1 # Bowel Movements 1 1 - Consult Information We will continue same standard PPN formula as yesterday. Serum sodium came down along with osmolality. Serum potassium was reported as 4.5 and noted. PICC line is planned so PPN will change to TPN on 08/13/17. Thanks
[2017-08-11] MEDS ORDERED: KETOROLAC 30 MG/ML INJECTION IVP ONE (15:18)
--- NOTE | 2017-08-11 15:36 | Progress Note ---
DATE 08/10/2017 POSTOP DAY #6 HISTORY The patient reports he is feeling well today. A clear liquid diet was started yesterday evening. The patient has been tolerating the clear liquid diet without any nausea or vomiting. The patient did have four loose bowel movements today. These were diarrhea type of bowel movements. A stool specimen was submitted for Clostridium difficile and the Clostridium difficile test was positive. PHYSICAL EXAMINATION VITAL SIGNS: The patient remains afebrile for the past 24 hours. Most recent temperature is 98 degrees Fahrenheit oral. Pulse is 77. Respiratory rate is 16. Blood pressure is 147/82. Oxygen saturation is 98% on room air. ABDOMEN: The abdominal incisions look good. The abdomen remains distended. It does not seem quite as tympanic today. LABORATORY DATA White blood cell count is 10,500 with no bands. Hemoglobin is 14.4. Hematocrit is 42.8. Electrolytes are all normal. Serum creatinine is 0.8. Stool specimen for Clostridium difficile toxin is positive. The blood cultures on a specimen submitted on 08/04/2017 are showing no growth after five days. This is a final result. IMPRESSION 1. Status post laparoscopic appendectomy on 08/04/2017 for treatment of acute appendicitis with perforation and periappendiceal abscess. 2. Postoperative Clostridium difficile-associated diarrhea. 3. Prolonged postoperative ileus which could be related to the Clostridium difficile-associated disease. PLAN 1. Continue clear liquid diet for now. 2. Continue ambulation. 3. Continue sequential compression devices for deep venous thrombosis prophylaxis. 4. Continue PPN for nutritional support. 5. Continue Reglan 10 mg IV every 6 hours for treatment of the prolonged postoperative ileus. 6. Stop Zosyn since the patient has Clostridium difficile-associated diarrhea. 7. Start patient on treatment with Flagyl 500 mg IV every 8 hours and vancomycin oral liquid 500 mg p.o. q.i.d. for treatment of Clostridium difficile -associated diarrhea. I did discuss treatment of the Clostridium difficile- associated diarrhea with Mack Wiseman from the pharmacy department. We did choose this regimen because of concern about the ileus being a consequence of the Clostridium difficile-associated diarrhea. There was concern about the severity of the Clostridium difficile-associated disease because of the prolonged postoperative ileus which did lead us to the choice of this particular regimen of treatment. 8. Recheck KUB and upright abdominal x-rays again tomorrow. MTDD
--- NOTE | 2017-08-11 15:49 | XRay Report ---
Indication: possible small bowel obstruction PROCEDURE: XR small bowel follow through: Encounter: Initial Comparison: KUB from earlier today Findings: Water-soluble contrast was administered orally followed by serial abdominal radiographs. This demonstrates slow progression through predominantly dilated small bowel in the abdomen, finally reaching the colon somewhere between four and five hours after administration. Contrast had traversed the entire colon to the level of the rectum by the 5 hour and 15 minute image. Small bowel dilatation is relatively unchanged throughout the course of the exam. Impression: Prolonged intestinal transit time of approximately five hours suggesting ileus. .
[2017-08-11] MEDS: FAT EMULSION 20% 100 ML IV SCH (19:33)
[2017-08-11] MEDS: SALINE FLUSH 10ml SYRINGE IVF PRN (21:18)
[2017-08-11] MEDS: NS FLUSH BAG 500ml IV PRN (21:23)
[2017-08-12] MEDS: METOCLOPRAMIDE 10mg/2ml INJECTION IVP SCH ×4 (03:35→20:36)
[2017-08-12] MEDS: MetroNIDAZOLE PB 500 MG/100 ML BAG IV SCH ×3 (03:35→18:47)
--- NOTE | 2017-08-12 07:46 | Progress Note ---
DATE 08/11/2017 POSTOP DAY #7 HISTORY The patient has been tolerating a clear liquid diet today without nausea or vomiting. He continues to have loose bowel movements. The patient did undergo imaging studies today as described below. The midline catheter was converted to a PICC line today. PHYSICAL EXAMINATION VITAL SIGNS: Temperature is 97.9 degrees Fahrenheit oral. Pulse is 72. Respiratory rate is 14. Blood pressure is 149/91. Oxygen saturation is 97% on room air. ABDOMEN: The abdomen is quite distended and tympanic. The abdominal incisions look good. LABORATORY DATA White blood cell count is 10,000 with 4 bands. Hemoglobin is 14.1. Hematocrit is 41.5. Serum sodium is 142. Serum potassium is 4.5. Serum creatinine is 0.8. IMAGING DATA The patient did undergo KUB and upright abdominal x-rays this morning. These x- rays showed worsening of the small bowel dilation at the left side of the abdomen compared to KUB and upright abdominal x-rays performed two days earlier. Small bowel loops now measured up to 5.9 cm in diameter. There were air-fluid levels. There was even less gas in the colon on the KUB and upright abdominal x-rays today than there had been two days earlier. There was no free air. The impression of the radiologist was that the increasing small bowel dilation with decreasing colon gas raised concern about development of a small bowel obstruction. It was thought that an atypical ileus could also create this bowel gas pattern. Because of worsening KUB and upright abdominal x-ray findings, a small bowel follow-through x-ray series was ordered. This was after discussion of the KUB and upright abdominal x-ray findings with Dr. Cb Santizo. The small bowel follow -through x-ray series performed today did show slow progression of contrast through predominantly dilated small bowel. The contrast did finally reach the colon sometime between 4 and 5 hours after administration. The contrast had passed through the entire colon down to the rectum by 5 hours and 15 minutes after administration. The impression by the radiologist was that the patient had prolonged intestinal transit time of approximately 5 hours suggesting ileus. IMPRESSION 1. Status post laparoscopic appendectomy on 08/04/2017 for treatment of acute appendicitis with perforation and periappendiceal abscess. 2. Postoperative Clostridium difficile associated diarrhea. 3. Prolonged postoperative ileus with worsening of the appearance of KUB and upright abdominal x-rays today and a prolonged intestinal transit time of approximately 5 hours demonstrated on small bowel follow-through x-ray series. PATIENT EDUCATION I did meet with the patient and his for approximately an hour this evening. The charge nurse for the surgical unit and the data warehouse manager were in the room during this entire hour while I was meeting with the patient and his . The patient and his were quite angry and upset about placement of the midline catheter in this patient on the previous evening. They had multiple complaints about the attempts to place the midline catheter at that time. I did talk with the patient and his about the treatment of the Clostridium difficile associated diarrhea and the treatment which we are providing for this at this time. I did talk with them about the prolonged postoperative ileus. I did describe to them the findings of the KUB and upright abdominal x-rays performed today and the small bowel x-ray series performed today. I did wait until the small bowel x-ray series was completed before talking with them, so I would know the results of this when I did talk with them. I did not know whether there would be a complete small bowel obstruction or an ileus until that study was completed and that study did take most of the afternoon to be completed. I did inform the patient and his of the small bowel follow-through x-ray series results. Current treatment for the prolonged postoperative ileus was reviewed with them. Options for further treatment of the prolonged postoperative ileus were discussed with them. Questions were solicited. All the questions of the patient and his were answered during this time. They had no remaining questions at the end of all this discussion. PLAN 1. Continue clear liquid diet for now. 2. Continue ambulation. 3. Continue sequential compression devices for deep venous thrombosis prophylaxis. 4. Continue PPN for now for nutritional support. A PICC line was placed today so that nutritional support can be switched from PPN to TPN tomorrow. 5. Continue Reglan 10 mg IV every 6 hours for treatment of prolonged postoperative ileus. 6. Continue Flagyl 500 mg IV every 8 hours and vancomycin oral liquid 500 mg p.o. q.i.d. for treatment of the Clostridium difficile associated diarrhea. 7. Continue to monitor temperature, white blood cell count and KUB and upright abdominal x-ray findings. 8. I did tell the patient and his that if the patient does develop nausea and vomiting we will probably need to place a nasogastric tube for decompression of the upper gastrointestinal tract. They do appear to understand this. 9. Continue to use Toradol and Tylenol for pain control and to avoid use of narcotics to help with resolution of the prolonged postoperative ileus. MTDD
[2017-08-12] MEDS ORDERED: ZOLPIDEM 5 MG TABLET PO PRN (07:49)
[2017-08-12] MEDS: VANCOMYCIN 250mg/5ml ORAL LIQ PO SCH ×4 (08:26→20:37)
[2017-08-12] MEDS: SALINE FLUSH 10ml SYRINGE IVF PRN ×3 (08:26→18:52)
[2017-08-12] MEDS: FAMOTIDINE PB 20 MG/50 ML BAG IV SCH ×2 (08:26→20:37)
--- NOTE | 2017-08-12 08:29 | XRay Report ---
Indication: ileus PROCEDURE: XR KUB w upright: Encounter: Initial Comparison: Small bowel series from yesterday Findings: No free air. Moderately dilated small bowel with air-fluid levels is again seen. There is contrast material within the colon extending throughout the colon to the level of the rectum. No significant residual contrast within the small bowel. Impression: Slow progression of contrast through the GI tract with findings of a persistent small bowel ileus. .
[2017-08-12] MEDS: MULTI-VIT INFUSION 10 ML, MULTI-TRACE ELEMENTS 1 ML in PPN - STANDARD FORMULA 2,000 ML IV SCH (09:33)
[2017-08-12] MEDS: AZITHROMYCIN IV SCH (09:34)
[2017-08-12] MEDS: NS IV SCH (09:34)
[2017-08-12] MEDS: ACETAMINOPHEN 500 MG TABLET PO PRN ×2 (15:06→19:02)
[2017-08-12] MEDS: FAT EMULSION 20% 100 ML IV SCH (15:07)
[2017-08-12] MEDS: KETOROLAC 30 MG/ML INJECTION IVP PRN (15:07)
--- NOTE | 2017-08-12 15:36 | Progress Note ---
DATE 08/12/2017 POSTOP DAY #8 HISTORY The patient has continued to tolerate a clear liquid diet without nausea or vomiting. He stops drinking liquids when he feels full. He has continued to have multiple loose bowel movements. PHYSICAL EXAMINATION VITAL SIGNS: Temperature is 97.2 degrees Fahrenheit oral. Pulse is 74. Respiratory rate is 18. Blood pressure is 138/77. Oxygen saturation is 98% on room air. ABDOMEN: The abdomen is distended and tympanic. All the abdominal incisions look good. The abdomen is soft. LABORATORY DATA White blood cell count is 11,000 with no bands. Serum sodium is 143. Serum potassium is 4.3. Serum creatinine is 0.7. IMAGING DATA The patient did undergo KUB and upright abdominal x-rays again this morning. All the contrast material from the small bowel x-ray series performed yesterday has moved from the small intestine into the colon. There is no significant residual contrast within the small bowel. The patient continues to have moderately dilated small bowel loops with air-fluid levels. The radiologist did note that there was slow progression of contrast through the GI tract. Overall findings were most consistent with persistent small bowel ileus. IMPRESSION 1. Status post laparoscopic appendectomy on 08/04/2017 for treatment of acute appendicitis with perforation and periappendiceal abscess. 2. Postoperative Clostridium difficile-associated diarrhea. 3. Prolonged postoperative small bowel ileus. PATIENT EDUCATION I did meet with the patient and his today. I did review with them the laboratory reports from today. I did review with them the KUB and upright abdominal x-ray findings from today. I did review with them the impression as described above. I did review with them the plan of care for treatment of the persistent small bowel ileus. Questions were solicited from them. All their questions were answered. They had no remaining questions at the end of the discussion. Courtney Landrum RN, was a ruby engineer in the room at the time of the discussion. PLAN 1. I am going to attempt to advance diet from a clear liquid diet to a full liquid diet at this time and see if the patient will tolerate this. 2. Continue ambulation. 3. Continue sequential compression devices for deep venous thrombosis prophylaxis. 4. The patient is going to transition from PPN to TPN for nutritional support today. I have talked with the pharmacist about this. If the oral diet can be advanced and the patient can tolerate an oral diet in adequate amounts, the parenteral nutrition will be able to be tapered down and eventually stopped. 5. Continue Reglan 10 mg IV every 6 hours for treatment of prolonged small bowel ileus. 6. I did start the patient today on azithromycin 250 mg IV once every 24 hours as a prokinetic agent to try to help with resolution of the prolonged small bowel ileus. 7. Continue Flagyl 500 mg IV every 8 hours and vancomycin oral liquid 500 mg p.o. q.i.d. for treatment of the Clostridium difficile-associated diarrhea. 8. Continue to monitor temperature, white blood cell count and KUB and upright abdominal x-ray findings. 9. Continue to use Toradol and Tylenol for pain control and avoid use of narcotics to help with resolution of the prolonged postoperative small bowel ileus. 10. Continue IV Pepcid for GI protection. MTDD
[2017-08-13] MEDS: METOCLOPRAMIDE 10mg/2ml INJECTION IVP SCH ×4 (02:51→21:37)
[2017-08-13] MEDS: MetroNIDAZOLE PB 500 MG/100 ML BAG IV SCH ×3 (02:51→21:37)
[2017-08-13] MEDS: MULTI-VIT INFUSION 10 ML, MULTI-TRACE ELEMENTS 1 ML in PPN - STANDARD FORMULA 2,000 ML IV SCH (04:24)
[2017-08-13] MEDS: MULTI-VIT INFUSION 10 ML, MULTI-TRACE ELEMENTS 1 ML in TPN - STANDARD FORMULA 2,000 ML IV SCH (06:01)
[2017-08-13] MEDS: KETOROLAC 30 MG/ML INJECTION IVP PRN ×2 (09:58→20:27)
[2017-08-13] MEDS: ACETAMINOPHEN 500 MG TABLET PO PRN (09:59)
[2017-08-13] MEDS: FAMOTIDINE PB 20 MG/50 ML BAG IV SCH ×2 (10:00→23:01)
[2017-08-13] MEDS: VANCOMYCIN 250mg/5ml ORAL LIQ PO SCH ×4 (10:00→21:38)
[2017-08-13] MEDS: SALINE FLUSH 10ml SYRINGE IVF PRN ×4 (10:02→21:47)
[2017-08-13] MEDS: NS FLUSH BAG 500ml IV PRN (10:23)
[2017-08-13] MEDS: AZITHROMYCIN IV SCH (11:37)
[2017-08-13] MEDS: NS IV SCH (11:37)
--- NOTE | 2017-08-13 15:47 | Progress Note ---
DATE OF VISIT 08/13/2017 REASON FOR VISIT Covering surgical care for Dr. Madrigal. SUBJECTIVE Jared states that he is doing well today. He denies any abdominal pain. He feels like his bloating has decreased. He has been having multiple bowel movements. He is tolerating his full liquid diet well. He has been ambulating multiple times per day. His is present and had no other concerns today other than his trouble sleeping. He had received Ambien last night which did not help him get to sleep. OBJECTIVE VITAL SIGNS: Temperature 96.6, pulse 73, blood pressure 146/76, respiratory rate 17, oxygen saturation 98% on room air. GENERAL: The patient is awake, alert, in no acute distress. ABDOMEN: Soft, mildly distended, appropriately tender - minimal. There is some ecchymosis around his umbilical incision but incisions are clean, dry and intact. LABORATORY DATA Recent blood sugar was 107. ASSESSMENT 1. Status post laparoscopic appendectomy on 08/04/2017 for treatment of acute perforated appendicitis with periappendiceal abscess. 2. Postoperative Clostridium difficile-associated diarrhea. 3. Prolonged postoperative small bowel ileus - apparent clinical improvement. PLAN 1. Continue with full liquid diet. 2. Due to his trouble sleeping I am going to change him from Ambien to 50 mg of Benadryl p.r.n. 3. Continue TPN. 4. Continue antibiotics for treatment of C. diff. 5. I did discuss the plan with the patient's who was present and she was in agreement as well. JOSE
[2017-08-13] MEDS: FAT EMULSION 20% 100 ML IV SCH (17:15)
[2017-08-14] MEDS: MULTI-VIT INFUSION 10 ML, MULTI-TRACE ELEMENTS 1 ML in TPN - STANDARD FORMULA 2,000 ML IV SCH (03:27)
[2017-08-14] MEDS: MetroNIDAZOLE PB 500 MG/100 ML BAG IV SCH ×3 (03:28→18:00)
[2017-08-14] MEDS: METOCLOPRAMIDE 10mg/2ml INJECTION IVP SCH ×4 (03:28→21:21)
[2017-08-14] MEDS: SALINE FLUSH 10ml SYRINGE IVF PRN ×5 (03:29→21:22)
--- NOTE | 2017-08-14 07:08 | Pharmacy Consult-TPN/PPN ---
Pharmacy Consult-TPN/PPN - Laboratory Information Chemistry Turbidity < 20 (0-20) 08/14/17 03:33 Sodium 142 MEQ/L (134-144) 08/14/17 03:33 Potassium 4.3 MEQ/L (3.6-5) 08/14/17 03:33 Chloride 109 MEQ/L (98-107) H 08/14/17 03:33 Carbon Dioxide 23 MEQ/L (22-30) 08/14/17 03:33 Anion Gap 10 MEQ/L (5-15) 08/14/17 03:33 BUN 16.0 MG/DL (9-20) 08/14/17 03:33 Creatinine 0.7 MG/DL (0.8-1.5) L 08/14/17 03:33 GFR Calculation 123 08/14/17 03:33 BUN/Creatinine Ratio 23 RATIO (6-26) 08/14/17 03:33 Glucose 75 MG/DL (75-110) 08/14/17 03:33 Glucometer 107 mg/dL (65-110) 08/13/17 12:11 Calculated Osmolality 273 MOSM/KG (261-280) 08/14/17 03:33 Calcium 9.0 MG/DL (8.4-10.2) 08/14/17 03:33 Phosphorus 3.3 MG/DL (2.5-4.5) 08/08/17 17:13 Total Bilirubin 1.30 MG/DL (0.20-1.30) 08/08/17 04:43 Conjugated Bilirubin 0.00 MG/DL (0.00-0.30) 08/04/17 02:43 Unconjugated Bilirubin 1.00 MG/DL (0.00-11.10) 08/04/17 02:43 Icterus Index < 2 (0-7) 08/14/17 03:33 AST 19 U/L (17-59) 08/08/17 04:43 ALT 39 U/L (21-72) 08/08/17 04:43 Alkaline Phosphatase 89 U/L (38-126) 08/08/17 04:43 Total Protein 6.7 G/DL (6.3-8.2) 08/08/17 04:43 Albumin 3.3 G/DL (3.5-5.0) L 08/08/17 04:43 Globulin 3.4 G/DL (2.4-3.6) 08/08/17 04:43 Albumin/Globulin Ratio 1.0 RATIO (1.1-2.2) L 08/08/17 04:43 Lipase 19 U/L (23-300) L 08/04/17 02:43 Plasma Lactate 0.8 MMOL/L (0.6-2.2) 08/08/17 04:43 Procalcitonin 0.38 NG/ML 08/09/17 04:29 Specimen Hemolysis < 15 (0-25) 08/14/17 03:33 Intake and Output 08/13/17 08/14/17 08/15/17 06:59 06:59 06:59 Intake Total 3582.667 / 3582.667 2961 / 2961 Balance 3582.667 / 3582.667 2961 / 2961 Weight 64.8 kg 66 kg Intake: IV 3102.667 / 3102.667 2761 / 2761 Zithromax 250 mg In 250 / 250 250 / 250 Normal Saline 250 ml @ 250 mls/hr IV Q24H [facility] Rx #:[id number] PEPCID PREMIX 20 mg In 50 100 / 100 100 / 100 ml @ 100 mls/hr IV Q12HR [facility] Rx#:[id number] Intralipid 20% 100 ml @ 100 / 100 100 / 100 50 mls/hr IV 1600 [facility] Rx# :[id number] FLAGYL IV PREMIX 500 mg 300 / 300 300 / 300 In 100 ml @ 100 mls/hr IV Q8H [facility] Rx#:[id number] Infuvite Adult 10 ml 2352.667 / 2352.667 Multi-Trace Elements 1 ml In Ppn - Standard Formula 2,000 ml @ 100 mls/hr IV .Q20H7M [facility] Rx# :[id number] Infuvite Adult 10 ml 2010 / 2010 Multi-Trace Elements 1 ml In TPN - Standard Formula 2,000 ml @ 100 mls/hr IV .Q20H7M [facility] Rx# :[id number] Oral 480 / 480 200 / 200 Other: Stool Consistency Liquid Loose Size of Bowel Movement Moderate # Voids 1 3 # Bowel Movements 1 1 - Consult Information We will continue same formula of TPN at the rate of 100mL per hour. Electrolytes remain stable. 100mL of intralipid 20% is given daily. Thanks
[2017-08-14] MEDS: FAMOTIDINE PB 20 MG/50 ML BAG IV SCH ×2 (08:23→21:21)
[2017-08-14] MEDS: VANCOMYCIN 250mg/5ml ORAL LIQ PO SCH ×4 (09:30→21:21)
[2017-08-14] MEDS: AZITHROMYCIN IV SCH (09:30)
[2017-08-14] MEDS: NS IV SCH (09:30)
[2017-08-14] MEDS: NS FLUSH BAG 500ml IV PRN ×2 (10:53→21:20)
[2017-08-14] MEDS: KETOROLAC 30 MG/ML INJECTION IVP PRN (14:01)
[2017-08-14] MEDS: ACETAMINOPHEN 500 MG TABLET PO PRN ×2 (14:01→20:24)
[2017-08-14] MEDS: FAT EMULSION 20% 100 ML IV SCH (15:59)
[2017-08-15] MEDS: MULTI-VIT INFUSION 10 ML, MULTI-TRACE ELEMENTS 1 ML in TPN - STANDARD FORMULA 2,000 ML IV SCH ×2 (00:33→16:39)
[2017-08-15] MEDS: METOCLOPRAMIDE 10mg/2ml INJECTION IVP SCH ×2 (03:37→10:47)
[2017-08-15] MEDS: MetroNIDAZOLE PB 500 MG/100 ML BAG IV SCH ×3 (03:37→19:25)
[2017-08-15] MEDS: SALINE FLUSH 10ml SYRINGE IVF PRN ×4 (05:00→20:42)
--- NOTE | 2017-08-15 08:50 | XRay Report ---
EXAM: XR KUB w upright DATE: 08/15/2017 8:00 AM Encounter: Subsequent INDICATION: Follow ileus COMPARISON: Prior abdominal radiographs 08/12/2017 and 08/11/2017, small bowel follow-through 08/11/2017 Technique: Upright and supine AP abdominal radiographs were obtained. Findings: Persistent gaseous distention of both the small bowel and colon with nonspecific air-fluid levels on the upright radiograph. No intraperitoneal free air. No acute osseous abnormality identified. The visualized lung bases appear clear. Impression: Persistent gaseous distention of both the small bowel and colon again suggesting generalized ileus. .
--- NOTE | 2017-08-15 09:11 | Pharmacy Consult-TPN/PPN ---
Pharmacy Consult-TPN/PPN - Laboratory Information - Consult Information Chemistry Labs: 143/111/ / 120 4.2\ 23\0.7\ The chloride was a little high but won't adjust the TPN today. The pharmacy will continue to monitor the TPN and adjust the TPN as needed. Thanks, He Blanc, Pharmacist
--- NOTE | 2017-08-15 09:39 | Progress Note ---
DATE OF VISIT 08/14/2017 REASON FOR VISIT Postoperative followup - covering for Dr. Madrigal. SUBJECTIVE Jared still feels like he is doing well today. He denies any significant abdominal pain. He continues to have multiple bowel movements with four since last evening. His says he has been passing a lot of flatus. The Benadryl helped slightly more than the Ambien last evening. OBJECTIVE VITAL SIGNS: Afebrile with stable vitals on room air. GENERAL: The patient is awake and alert, in no acute distress. ABDOMEN: Soft, mildly distended, nontender. Incisions are stable. LABORATORY DATA White blood cell count remains normal and glucose is normal as well. ASSESSMENT 1. Status post laparoscopic appendectomy on 08/04/2017 for treatment of acute perforated appendicitis with periappendiceal abscess. 2. Postoperative Clostridium difficile-associated diarrhea. 3. Prolonged postoperative small bowel ileus - continued clinical evidence of distention. PLAN 1. Continue with full liquid diet. I am hesitant to advance his diet without seeing his KUB tomorrow. 2. Recheck KUB tomorrow. 3. Continue Benadryl for trouble sleeping. 4. Continue TPN. 5. Continue antibiotics for treatment of Clostridium difficile. 6. I did discuss the situation with the patient's who was in agreement with continued observation. She is awaiting the x-ray findings tomorrow. JOSE
[2017-08-15] MEDS: NS IV SCH (10:45)
[2017-08-15] MEDS: AZITHROMYCIN IV SCH (10:45)
[2017-08-15] MEDS: VANCOMYCIN 250mg/5ml ORAL LIQ PO SCH ×4 (10:46→20:42)
[2017-08-15] MEDS ORDERED: IBUPROFEN 200 MG TABLET PO PRN (15:01)
[2017-08-15] MEDS: FAT EMULSION 20% 100 ML IV SCH (16:01)
--- NOTE | 2017-08-15 16:16 | Progress Note ---
DATE 08/15/2017 POSTOP DAY NUMBER 11 HISTORY The patient has been tolerating the full liquid diet since it was started three days ago. He has had no nausea or vomiting. He continues to have multiple loose bowel movements each day. He has been receiving TPN for nutritional support. PHYSICAL EXAMINATION VITAL SIGNS: Temperature is 98.3 degrees Fahrenheit oral. Pulse is 81. Respiratory rate is 16. Blood pressure is 138/74. Oxygen saturation is 98% on room air. ABDOMEN: All the abdominal incisions look good. I think the patient's abdomen is a little less distended and tympanic today than it was three days ago. The abdomen is soft and nontender. LABORATORY DATA Serum sodium is 143. Serum potassium is 4.2. Serum creatinine is 0.7. Serum albumin is 3.4. Total protein is 6.6. IMAGING DATA The patient did have KUB and upright abdominal x-rays performed today. There continue to be distended loops of small bowel and colon demonstrated on these x- rays. There are air-fluid levels. The radiologist did think that the persistent distention with gas of the small bowel and colon suggests generalized ileus. I do think there is a lot more colon gas on the x-ray today than there has been on previous x-rays. IMPRESSION 1. Status post laparoscopic appendectomy on 08/04/2017 for treatment of acute appendicitis with perforation and periappendiceal abscess. 2. Postoperative Clostridium difficile-associated diarrhea. 3. Prolonged postoperative ileus. PATIENT EDUCATION I did meet with the patient and his again today. I did review with them the findings on the KUB and upright abdominal x-rays today and the abdominal examination findings. I did talk with them about the plan of care and order changes that are planned for today. Questions were solicited from them. All their questions were answered. They had no remaining questions at the end of the discussion. Rocio Lange RN, was a gas inspector in the room throughout this discussion. PLAN 1. Advance diet to soft diet at this time and see if the patient will tolerate this. The patient will also be given some dietary supplements. 2. Continue ambulation. 3. Decrease rate of administration of TPN. This will continue transition of the patient from parenteral nutrition to oral nutrition. 4. Change from intravenous Reglan to oral Reglan for continued treatment of the prolonged postoperative ileus. 5. Continue azithromycin 250 mg IV every 24 hours as a prokinetic agent to try to help with resolution of the prolonged ileus. 6. Continue Flagyl 500 mg IV every 8 hours and vancomycin oral liquid 500 mg p.o. q.i.d. for treatment of Clostridium difficile-associated diarrhea. 7. Stop Toradol and start Motrin to transition the patient from intravenous to oral analgesics. Continue Tylenol. The patient can use Motrin and Tylenol for pain control and continue to avoid use of narcotics to help with resolution of prolonged postoperative ileus. 8. Discontinue intravenous Pepcid. 9. Calorie count to determine more precisely the amount of calories the patient is getting each day with his oral intake. 10. Discharge patient from the hospital when he has adequate intake of liquids and food to maintain his hydration and nutritional status. The treatment of Clostridium difficile can be transitioned completely to oral treatment at that time and continued on an outpatient basis. MTDD
[2017-08-15] MEDS: FAMOTIDINE PB 20 MG/50 ML BAG IV SCH (16:24)
[2017-08-16] MEDS: MULTI-VIT INFUSION 10 ML, MULTI-TRACE ELEMENTS 1 ML in TPN - STANDARD FORMULA 2,000 ML IV SCH ×2 (02:38→07:34)
[2017-08-16] MEDS: MetroNIDAZOLE PB 500 MG/100 ML BAG IV SCH ×3 (02:39→18:13)
[2017-08-16] MEDS: VANCOMYCIN 250mg/5ml ORAL LIQ PO SCH ×4 (08:38→21:48)
[2017-08-16] MEDS: NS IV SCH (10:11)
[2017-08-16] MEDS: AZITHROMYCIN IV SCH (10:11)
[2017-08-16] MEDS: SALINE FLUSH 10ml SYRINGE IVF PRN ×3 (10:12→18:22)
[2017-08-16] MEDS: FAT EMULSION 20% 100 ML IV SCH (16:04)
--- NOTE | 2017-08-16 17:35 | Progress Note ---
DATE 08/16/2017 POSTOPERATIVE DAY #12 HISTORY The patient has tolerated a regular diet. He is having no nausea or vomiting. The patient is receiving TPN at 50 mL an hour. The patient has a calorie count in progress to see me how many calories he is able to achieve with his oral intake. The bowel movements for the patient are becoming less loose and watery and more formed. The patient states that his abdomen feels better today than it did yesterday. It feels better since he has started the regular diet. The patient states his abdomen feels less distended now than it has been in the past. I did meet with the pharmacists today and talked with them about choice of antibiotics for the patient for treatment of his Clostridium difficile- associated diarrhea following discharge from the hospital. PHYSICAL EXAMINATION VITAL SIGNS: Temperature is 97.8 degrees Fahrenheit oral. Pulse is 60. Respiratory rate is 16. Blood pressure is 133/76. Oxygen saturation is 98% on room air. ABDOMEN: The abdomen is soft and nontender. There is some mild distention of the abdomen. IMPRESSION 1. Status post laparoscopic appendectomy on 08/04/2017 for treatment of acute appendicitis with perforation and periappendiceal abscess. 2. Postoperative Clostridium difficile-associated diarrhea. 3. Prolonged postoperative ileus which appears to be improving. PATIENT EDUCATION I did meet with the patient and his again today. I did discuss the current status of the patient with them. I talked about plans for future care. Questions were solicited from the patient and his . All of their questions were answered. They had no remaining questions at the end of the office visit. JAZ Flores was a process camera operator in the room throughout this discussion. PLAN 1. Continue regular diet and also the dietary supplements which the patient is receiving. 2. Continue ambulation of the patient. 3. Continue TPN at 50 mL an hour. 4. Continue calorie count to determine more precisely how many calories the patient is able to get from oral intake at this time. 5. Continue Reglan and azithromycin as prokinetic agents to help with resolution of the prolonged postoperative ileus. The azithromycin is being converted from intravenous to oral azithromycin. 6. Continue Flagyl 500 mg IV every 8 hours and vancomycin oral liquid 500 mg p.o. q.i.d. for treatment of Clostridium difficile-associated diarrhea up until the time of discharge from the hospital. 7. Recheck KUB and upright abdominal x-rays tomorrow. 8. If KUB and upright abdominal x-rays look good tomorrow and the patient continues to tolerate his regular diet and the patient has an adequate calorie intake from his oral diet, he can be discharged from the hospital and continue treatment of the Clostridium difficile-associated diarrhea on an outpatient basis with oral antibiotics. JOSE
[2017-08-17] MEDS: MetroNIDAZOLE PB 500 MG/100 ML BAG IV SCH ×2 (03:05→11:29)
[2017-08-17] MEDS: MULTI-VIT INFUSION 10 ML, MULTI-TRACE ELEMENTS 1 ML in TPN - STANDARD FORMULA 2,000 ML IV SCH (06:25)
[2017-08-17] MEDS ORDERED: AZITHROMYCIN 250 MG TABLET PO SCH (08:00)
[2017-08-17] MEDS: VANCOMYCIN 250mg/5ml ORAL LIQ PO SCH ×2 (08:29→14:09)
[2017-08-17 08:33] VITALS: RESP 16
--- NOTE | 2017-08-17 11:03 | XRay Report ---
Indication: ileus PROCEDURE: XR KUB w upright: Encounter: Initial Comparison: August 15, 2017 Findings: Some interval improvement in the ileus with decreasing small bowel dilatation. Persistent air-fluid levels seen in the small and large bowel with scattered diffuse colonic gas present to the level of the rectum. Persistent prominent loop of small bowel in the central abdomen up to 6.1 cm in diameter. Bony structures are unchanged. Lung bases are clear. Impression: Improving ileus. .
[2017-08-17] MEDS: SALINE FLUSH 10ml SYRINGE IVF PRN (11:29)
[2017-08-17] MEDS: NS FLUSH BAG 500ml IV PRN (11:30)
--- NOTE | 2017-08-17 12:29 | Discharge Instructions ---
Discharge Plan - Med Rec/Dispo Referrals/Follow Up: Dixon Madrigal MD [Physician] - 2 Weeks Prescriptions: No Action No known Home medications [No home meds] 0 #0 misc
[2017-08-17] MEDS ORDERED: NEOMYCIN/POLYMYXIN/BACITRACIN OINT PACKET TP ONE (13:15)
[2017-08-17 14:17] VITALS: BP 141/73; PULSE 60; TEMP 97.7; O2SAT 99
--- NOTE | 2017-08-17 16:45 | Progress Note ---
DATE 08/17/2017 POSTOP DAY #13 HISTORY The patient continues to tolerate a regular diet well. He did have a calorie count done yesterday and had 1977 calories by oral intake yesterday. He is having no nausea or vomiting. The TPN was stopped at 0600 hours this morning. The patient states his abdomen feels better each day. PHYSICAL EXAMINATION VITAL SIGNS: Temperature is 97.8 degrees Fahrenheit oral. Pulse is 78. Respiratory rate is 16. Blood pressure is 123/74. Oxygen saturation is 97% on room air. ABDOMEN: The abdomen is soft and nontender. The abdomen is less distended than it has been. All the abdominal incisions look good. IMAGING DATA The patient did have KUB and upright abdominal x-rays performed today. These x- rays show some interval improvement in the ileus with decreasing small bowel dilation. There are still some persistent air-fluid levels seen in both the large bowel and the small bowel. There is a persistent prominent loop of small bowel in the central abdomen which is up to 6.1 cm in diameter. The overall impression by the radiologist is that the ileus is improving. IMPRESSION 1. Status post laparoscopic appendectomy on 08/04/2017 for treatment of acute appendicitis with perforation and periappendiceal abscess. 2. Postoperative Clostridium difficile-associated diarrhea which is improving. 3. Prolonged postoperative ileus which appears to be improving. PLAN 1. Discontinue PICC line. 2. Dismiss patient from [facility] today. 3. I did talk with the pharmacists yesterday about continuation of treatment for Clostridium difficile-associated diarrhea on an outpatient basis. They recommended having the patient use Flagyl 500 mg p.o. t.i.d. for another week following discharge from the hospital. 4. Continue Reglan and azithromycin as prokinetic agents for a while following discharge from the hospital to help the ileus resolve completely. DISCHARGE MEDICATIONS 1. Flagyl 500 mg one p.o. t.i.d. (dispense #21 - no refills). 2. Reglan 10 mg one p.o. q.i.d. one-half hour before meals and at bedtime ( dispense #120 - refill x3). 3. Azithromycin 250 mg one p.o. daily (dispense #7 - no refills). 4. Tylenol 325 mg 1-2 tablets p.o. every 5 hours p.r.n. pain. 5. Ibuprofen 200 mg 2-4 tablets p.o. every 6 hours p.r.n. pain. DISCHARGE DIET Regular diet. DISCHARGE DISPOSITION Follow up office visit with Dr. Madrigal at the office two weeks following discharge from the hospital. JOSE
--- NOTE | 2017-08-22 14:04 | Discharge Summary ---
DISCHARGE DIAGNOSES 1. Severe acute necrotizing appendicitis with perforation and periappendiceal abscess. 2. Sepsis. 3. Postoperative Clostridium difficile-associated diarrhea. 4. Prolonged postoperative ileus. 5. Nicotine dependence. OPERATION Laparoscopic appendectomy on 08/04/2017. HOSPITAL COURSE This patient was admitted to [facility] by Dr. Madrigal on 08/04/2017. The details of the history and physical examination findings at the time of admission to the hospital can be found in the dictated Admission History and Physical Examination report in the chart. Temperature was 103.2 degrees Fahrenheit at the time of admission to the hospital. Blood cultures were performed preoperatively at this time. Preoperative white blood cell count was 18,400. The patient did undergo a CT scan of the abdomen and pelvis preoperatively on 08/04/2017. This did show a dilated appendix with thickening of the wall of the appendix and adjacent inflammatory changes at the right lower quadrant of the abdomen. The findings were thought to be consistent with acute appendicitis. There was no abscess identified. There was no free air identified. There was a small amount of free fluid. The patient was admitted to the hospital with the diagnoses of acute appendicitis and nicotine dependence. The patient was given intravenous fluids preoperatively. The patient was given intravenous Invanz preoperatively. The patient did undergo laparoscopic appendectomy on 08/04/2017. Details of operative findings can be found in the dictated operative report in the chart. The patient was found to have perforation of the appendix and a walled off periappendiceal abscess at the time of operation. There was stool coming out through the opening in the appendix into the peritoneal cavity at the time of operation. The patient had a periappendiceal abscess filled with stool. There were no complications at the time of operation. The patient was started on treatment with intravenous Zosyn postoperatively. On 08/05/2017, the patient was having less pain at the abdomen than he had been experiencing preoperatively. He was ambulating well. He was receiving intravenous Zosyn. White blood cell count was 11,000 with 10 bands. Platelet count was 116,000. Blood cultures performed preoperatively were negative at 24 hours. The intravenous Zosyn was continued. Ambulation was continued. A clear liquid diet was started. The patient was using sequential compression devices for deep venous thrombosis prophylaxis. The patient did have a temperature elevation up to 100.6 degrees Fahrenheit oral at 2000 hours on 08/05/2017. The patient had a temperature elevation up to 101.3 degrees Fahrenheit oral at 2357 hours on 08/05/2017. The patient did report increased abdominal pain and increase in his abdominal distention on the morning of 08/06/2017. The clear liquid diet which had been started on the previous day was stopped. Diet was changed back to n.p.o. with ice chips. The patient continued ambulating. He did not have any nausea or vomiting. The abdomen was quite distended and tympanic at examination on 2016. The distention and tympany were worse than they had been on the previous day. White blood cell count was 10,600 with 2 bands. Procalcitonin was 2.37 at this time. Blood cultures performed preoperatively showed no growth at two days. Intravenous Zosyn was continued. Ambulation was continued. Sequential compression devices were continued. The patient did have a temperature elevation up to 102.4 degrees Fahrenheit oral at 1634 hours on 08/06/2017. The patient did begin passing some flatus on 08/07/2017. He had a bowel movement on 08/07/2017. He continued to ambulate well. He continued to receive intravenous Zosyn. The patient had a temperature of 101.2 degrees Fahrenheit oral at 0343 hours on 08/07/2017. The abdomen was still quite distended and tympanic at this time. White blood cell count was 9400 with no bands. Procalcitonin was 1.12. Plasma lactate was 0.9. Intravenous Zosyn was continued. Ambulation was continued. The patient was kept n.p.o. except for ice chips. Sequential compression devices continued to be used for deep venous thrombosis prophylaxis. On 08/08/2017, the patient had been afebrile for the previous 24 hours. The patient did have two or three more bowel movements. The patient did, however, have some nausea and dry heaves on 08/08/2017. The patient continued to receive intravenous Zosyn. The patient was ambulating. White blood cell count was 8600 with no bands. Procalcitonin was 0.68. The abdomen continued to be very distended and tympanic at this time. The patient was kept n.p.o. except for ice chips. Administration of PPN was started for nutritional support at this time. Treatment was also started at this time with Reglan 10 mg intravenously every 6 hours to help treat the postoperative ileus. Sequential compression devices were continued for deep venous thrombosis prophylaxis. On 08/09/2017, the patient continued to receive intravenous Zosyn. The patient continued to pass some flatus. The patient was ambulating well. The abdomen remained distended and tympanic. White blood cell count was 8600 with 1 band. Procalcitonin was 0.38. KUB and upright abdominal x-rays performed on 2016 showed dilated small bowel loops with air-fluid levels. There were some scattered small amounts of gas present throughout the colon. The radiologist thought that the appearance would be most consistent with postoperative ileus. The patient was thought to have a prolonged postoperative ileus. Intravenous Zosyn was continued. Ambulation was continued. PPN was continued for nutritional support. Intravenous Reglan was continued. Sequential compression devices were continued for deep venous thrombosis prophylaxis. A clear liquid diet was started again on 08/09/2017. Intravenous morphine use was stopped for pain control to help the ileus resolve. The patient had already been receiving intravenous Toradol. The intravenous Toradol and the oral Tylenol were continued for pain control. The patient reported on 08/10/2017 that he was tolerating the clear liquid diet without any nausea or vomiting. The patient did have four loose bowel movements on 08/10/2017. These were diarrhea type of bowel movements. A stool specimen was submitted for Clostridium difficile studies and the Clostridium difficile test was positive. The abdomen remained distended and tympanic. White blood cell count was 10,500 with no bands. A stool specimen for Clostridium difficile toxin was positive. Blood cultures on the specimens submitted preoperatively were showing no growth at five days. This was a final result. The patient was thought to have a prolonged postoperative ileus. It was thought that this might be associated with Clostridium difficile-associated disease. The patient was thought to have postoperative Clostridium difficile- associated diarrhea. Clear liquid diet was continued. Ambulation was continued. Sequential compression devices were continued for deep venous thrombosis prophylaxis. PPN was continued for nutritional support. Reglan was continued. The Zosyn was stopped at this time since the patient had Clostridium difficile-associated diarrhea. The patient was started on treatment with Flagyl 500 mg IV every 8 hours and vancomycin oral liquid 500 mg p.o. q.i.d. for treatment of the Clostridium difficile-associated diarrhea. Treatment of Clostridium difficile-associated diarrhea was discussed with the pharmacist. The regimen of Flagyl and vancomycin was selected because of concern about the ileus being a consequence of the Clostridium difficile- associated diarrhea. There was concern about the severity of the Clostridium difficile-associated disease because of the prolonged postoperative ileus. On 08/11/2017, the patient continued to tolerate the clear liquid diet without nausea or vomiting. He did continue to have loose bowel movements. The patient did have a midline catheter in place. This midline catheter was converted to a PICC line on 08/11/2017. The patient remained afebrile. The abdomen was quite distended and tympanic at this time. White blood cell count was 10,000 with 4 bands. The patient did undergo KUB and upright abdominal x- rays. These x-rays showed worsening of the small bowel dilation at the left side of the abdomen compared to KUB and upright abdominal x-rays performed two days earlier. Small bowel loops now measured up to 5.9 cm in diameter. There were air-fluid levels. There was even less gas in the colon on the KUB and upright abdominal x-rays than there had been two days earlier. There was no free air. The impression by the radiologist was that the increasing small bowel dilation with decreasing colon gas raised concern about development of a small bowel obstruction. It was thought that an atypical ileus could also create this bowel gas pattern. Because of the worsening KUB and upright abdominal x-ray findings, small bowel follow-through x-ray series was ordered. This was after discussion of the KUB and upright abdominal x-ray findings with Dr. Cb Santizo. The small bowel follow-through x-ray series performed on 2016 did show progression of contrast through predominantly dilated small bowel. The contrast did finally reach the colon sometime between four and five hours after administration. The contrast had passed through the entire colon down to the rectum by five hours and 15 minutes after administration. The impression by the radiologist was that the patient had prolonged intestinal transit time of approximately five hours suggesting ileus. The clear liquid diet was continued. Ambulation was continued. Sequential compression devices were continued for deep venous thrombosis prophylaxis. A PICC line was placed on 08/11/2017 so that nutritional support could be switched from PPN to TPN on the following day. Reglan was continued. The Flagyl 500 mg IV every 8 hours and vancomycin oral liquid 500 mg p.o. q.i.d. was continued for treatment of Clostridium difficile-associated diarrhea. Toradol and Tylenol were continued for pain control. On 08/12/2017, the patient continued to tolerate the clear liquid diet without nausea or vomiting. He did continue to have multiple loose bowel movements. The patient remained afebrile. The abdomen remained distended and tympanic. White blood cell count was 11,000 with no bands. The patient did undergo KUB and upright abdominal x-rays again on the morning of 08/12/2017. All the contrast material from the small bowel x-ray series performed on the previous day had moved from the small intestine into the colon. There was no significant residual contrast within the small bowel. The patient continued to have moderately dilated small bowel loops with air-fluid levels. The radiologist did note that there was slow progression of contrast through the GI tract. Overall findings were most consistent with persistent small bowel ileus. Diet was advanced from a clear liquid diet to a full liquid diet on . Ambulation was continued. Sequential compression devices were continued for deep venous thrombosis prophylaxis. PPN was stopped and TPN was started for nutritional support on 08/12/2017. Flagyl 500 mg every 8 hours and vancomycin oral liquid 500 mg p.o. q.i.d. was continued for treatment of Clostridium difficile-associated diarrhea. Reglan was continued for treatment of prolonged postoperative ileus. Azithromycin 250 mg IV once every 24 hours was started as a prokinetic agent on 08/12/2017 to try to help with resolution of the prolonged small bowel ileus. Toradol and Tylenol were continued for pain control. Pepcid was continued for GI protection. On 08/13/2017, the patient denied any abdominal pain. He felt like his bloating was decreased. He continued to have multiple bowel movements. He was tolerating the full liquid diet. He was ambulating multiple times each day. The abdomen was distended. Full liquid diet was continued. TPN was continued. The same treatment was continued for Clostridium difficile-associated diarrhea. On 08/14/2017, the patient denied any significant abdominal pain. The patient continued to have multiple bowel movements. The patient was passing a lot of flatus. White blood cell count was 10,300 with no bands. Full liquid diet was continued. TPN was continued. Intravenous Flagyl and oral vancomycin liquid were continued for treatment of Clostridium difficile-associated diarrhea. On 08/15/2017, the patient was having no nausea or vomiting. He did continue to tolerate the full liquid diet. He did continue to have multiple loose bowel movements. He was receiving TPN. The abdomen did seem a little less distended and tympanic at examination at this time. The abdomen was soft and nontender. KUB and upright abdominal x-rays on 08/15/2017 showed distended loops of small bowel and colon. There were air-fluid levels. The radiologist did think that the persistent distention with gas of the small bowel and colon suggested generalized ileus. Dr. Madrigal did think that there was a lot more colon gas on the KUB and upright abdominal x-rays at this time than there had been on previous x-rays. Diet was advanced to a soft diet on 08/15/2017. Ambulation was continued. TPN was continued. Intravenous Reglan and azithromycin were continued. Intravenous Flagyl and vancomycin oral liquid were continued. Toradol was stopped. Motrin was started. Tylenol was continued. Intravenous Pepcid was continued at this time. On 08/16/2017, the patient was tolerating a regular diet. He was having no nausea or vomiting. He was receiving TPN. The rate of TPN administration had been decreased to 50 mL/hour. The patient did have a calorie count in progress to see how many calories he was able to achieve with his oral intake. The patient reported that his bowel movements were becoming less loose and watery and more formed. The patient did think that his abdomen was feeling better each day. The patient thought his abdomen was less distended. Dr. Madrigal did meet with the pharmacists at this time and talk with them about choice of antibiotics for the patient for treatment of Clostridium difficile-associated diarrhea following discharge from the hospital. The abdomen was soft and nontender at examination. The patient remained afebrile. There was some mild distention of the abdomen. Regular diet was continued. The patient was also receiving some dietary supplements. Ambulation was continued. TPN was continued at 50 mL/hour. Reglan and azithromycin were continued as prokinetic agents to help with the postoperative ileus. Intravenous Flagyl and vancomycin oral liquid were continued for treatment of the Clostridium difficile- associated diarrhea. On 08/17/2017, the patient continued to tolerate a regular diet. The patient was reported to have had an intake of 1977 calories by oral intake on the previous day. The patient was having no nausea or vomiting. TPN was stopped on the morning of 08/17/2017. The patient did state that his abdomen was feeling better each day. The patient remained afebrile. The abdomen was soft and nontender. The abdomen was less distended than it had been. KUB and upright abdominal x-rays were performed on 08/17/2017. These x-rays did show some interval improvement in the ileus with decreasing small bowel dilation. There were still some persistent air-fluid levels seen in both the large bowel and the small bowel. There was a persistent prominent loop of small bowel in the central abdomen which was 6.1 cm in diameter. The overall impression by the radiologist was that the ileus was improving. The PICC line was discontinued on 08/17/2017. The pharmacists had recommended on the previous day that the patient continue to take Flagyl 500 mg p.o. t.i.d. following discharge from the hospital for another week for treatment of the Clostridium difficile-associated diarrhea. Plans were made to do this. The patient was dismissed from [facility] in stable condition on 08/17/2017. A pathology report was returned on the appendix specimen submitted at the operation performed on 08/04/2017. Pathology report diagnosis on the appendix was marked acute necrotizing appendicitis and periappendicitis. There was no neoplasm identified. DISCHARGE MEDICATIONS 1. Flagyl 500 mg one p.o. t.i.d. (dispense #21 - no refills). 2. Reglan 10 mg one p.o. q.i.d. one-half hour before meals and at bedtime ( dispense #120 - refill x3). 3. Azithromycin 250 mg one p.o. daily (dispense #7 - no refills). 4. Tylenol 325 mg 1-2 tablets p.o. every 5 hours p.r.n. pain. 5. Ibuprofen 200 mg 2-4 tablets p.o. every 6 hours p.r.n. pain. DISCHARGE DIET Regular diet. DISCHARGE DISPOSITION Followup office visit with Dr. Madrigal at the office two weeks following discharge from the hospital. JOSE
== END 2017-08-17 14:20 | disposition home or self-care (01) | DRG 853 ==
LOC: ED 02:11 → SRG 02:11
PROVIDERS: ADMIT Surgery; ATTEND Surgery

== ENCOUNTER 2017-09-28 10:31 | Inpatient (IN) ==
[2017-09-28] MEDS ORDERED: HYDROMORPHONE 2 MG/ML INJECTION IVP ONE (11:31)
[2017-09-28] MEDS ORDERED: NS 1,000 ML IV ONE (11:31)
[2017-09-28] MEDS ORDERED: ONDANSETRON 4 MG/2 ML INJECTION IVP ONE (11:31)
[2017-09-28] MEDS: SALINE FLUSH 10ml SYRINGE IVF PRN ×2 (11:40→14:54)
[2017-09-28] MEDS ORDERED: IOHEXOL 300mg/ml 100ml INJECTION ONE (11:43)
[2017-09-28] MEDS ORDERED: SALINE FLUSH 10ml SYRINGE ONE (11:44)
[2017-09-28] MEDS ORDERED: NS 100 ML ONE (11:44)
--- NOTE | 2017-09-28 12:32 | CT Scan Report ---
Indication: postop pain after ruptured appendicitis PROCEDURE: CT abdomen pelvis w con: Encounter: Initial Comparison: CT abdomen and pelvis dated August 04, 2017 Technique: Axial CT images were performed through the abdomen and pelvis after the administration of intravenous contrast. Coronal and sagittal two-dimensional reformats. Automated Exposure Control and Iterative Reconstruction dose reducing techniques were utilized. Contrast: Omnipaque 300 89 mL Findings: The lung bases are clear. The liver is normal. The gallbladder, spleen, pancreas, adrenal glands and kidneys are within normal limits. No abdominal or pelvic lymphadenopathy. The bladder is normal. No free fluid identified. Moderate stool in the colon. Postoperative changes from prior appendectomy. Fluid-filled loops of distal small bowel seen in the right mid to lower abdomen and pelvis. Some of these are at the upper limits of normal in size to mildly dilated at 2.6 cm in maximal dimension. No discrete transition point. There is some swirling of the mesenteric vessels seen in this region. The left upper abdominal small bowel loops are decompressed. Impression: 1. Fluid-filled mildly dilated small bowel loops in the abdomen. Findings could represent gastroenteritis or potentially a mild partial small bowel obstruction from adhesions or internal hernia. No discrete transition point identified however. No evidence of a complete small bowel obstruction. 2. No abscess. .
--- NOTE | 2017-09-28 13:25 | Emergency Department Report ---
Abdominal Pain HPI - General Chief Complaint: Abdominal Pain Stated Complaint: abd pain Time Seen by Provider: 09/28/17 11:18 - History of Present Illness HPI narrative: 42-year-old gentleman presents with abdominal pain onset for 3 hours. He was treated surgically for a ruptured appendicitis in August. He has had a couple of episodes of pain similar to this since being discharged from the hospital, however they have always resolved within 30 minutes to an hour. This wound did not. He rated the pain is 8 out of 10 and was brought to the emergency department by his . He's not had fever or chills. He did feel nauseated, but has not thrown up. He's had no diarrhea, did have a bowel movement yesterday. He ate a bunch of carbs, half of a cake and a bunch of bread approximately 24 hours ago. - Related Data Home Medications Medication Instructions Recorded Confirmed Metoclopramide [Reglan] 10 mg PO QID 09/28/17 09/28/17 Allergies Allergy/AdvReac Type Severity Reaction Status Date / Time No Known Drug Allergies Allergy Unknown Verified 09/28/17 10:35 Review of Systems All systems: reviewed and negative except as stated PFSH Patient Stated Medical History Sleep Apnea No Other GI Yes: RUPTURED APPENDIX Hx Renal Disease No Clinic Medical History Appendicitis (Acute Medical) Surgical History: Appendicitis ruptured - Social History Smoking status: Never smoker Substance use type: does not use Physical Exam - Limitations Limitations: language barrier - General General appearance: alert, in distress (obvious pain) - Normal Exams: Head:: Normocephalic without trauma Chest/Respirations:: Clear all cervantes, with good airflow, and symmetry bilaterally Cardiovascular:: Regular rate and rhythm, without murmur or gallop, Pulses 2+ all extremities, capillary refill, <2 seconds all extremities Neurological:: Patient is alert, and oriented, cranial nerves, motor/sensory/ cerebellar, exams w/o gross deficits, to observation Psychiatric:: Patient exhibits, appropriate attention, emotion and affect - Abdominal Exam Abdominal exam: Present: distention (mild), tenderness (epigastric and suprapubic), diminished bowel sounds, hypoactive bowel sounds. Absent: guarding , rebound, rigidity Course Vital Signs Temperature 98.2 F 09/28/17 10:35 Pulse Rate 77 09/28/17 10:35 Respiratory Rate 20 09/28/17 10:35 Blood Pressure 141/86 H 09/28/17 10:35 Pulse Oximetry 100 09/28/17 10:35 Temperature 98.2 F 09/28/17 10:35 Pulse Rate 75 09/28/17 12:29 Respiratory Rate 17 09/28/17 12:29 Blood Pressure 129/85 09/28/17 12:29 Pulse Oximetry 99 09/28/17 12:29 Abdominal Pain - MDM Narrative Medical decision making narrative: Labs reviewed. White count returns at 5.7. Lactate is elevated at 2.3. CT of abdomen shows dilated loops of small bowel with likely partial small bowel obstruction. Patient has a history of ruptured appendicitis one month ago, clinically it fits that he may be developing a small bowel obstruction. I spoke with Dr. Madrigal requested that the patient be admitted to hospitalist service for observation and IV fluid overnight. Spoke with the patient and his and they're agreeable to stay. Patient did receive Zofran 4 mg IV, saline 1 L IV, Dilaudid 0.5 mg IV while in the emergency department. - Lab Data Result diagrams: 09/28/17 11:43 09/28/17 11:43 Lab Results 09/28/17 09/28/17 09/28/17 Range/Units 11:43 11:43 13:07 WBC 5.7 (4.5-11.0) T/MM3 RBC 5.06 (4.50-5.90) M/MM3 Hgb 14.3 (13.5-17.5) GM/DL Hct 41.6 (41-53) % MCV 82.2 (80-100) UM3 MCH 28.3 (26-34) UUG MCHC 34.4 (31-37) GM/DL RDW Std Deviation 38.0 (36.9-50.2) FL Plt Count 173 (130-400) T/MM3 MPV 11.7 (9.4-12.4) UM3 Immature Gran % (Auto) 0.0 (0.0-0.5) % Neut % (Auto) 54.6 (33-66) % Lymph % (Auto) 37.1 (23-45) % Woods % (Auto) 5.3 (0-9.0) % Eos % (Auto) 2.8 (0-4) % Baso % (Auto) 0.2 (0-2) % Neut # (Auto) 3.1 (1.8-7.7) T/MM3 Lymph # (Auto) 2.1 (1-4.8) T/MM3 Woods # (Auto) 0.3 (0-0.8) T/MM3 Eos # (Auto) 0.2 (0-0.5) T/MM3 Baso # (Auto) 0.0 (0-0.2) T/MM3 Abs Immat Gran (auto) 0.00 (0.00-0.03) T/MM3 Turbidity < 20 (0-20) Sodium 144 (134-144) MEQ/L Potassium 3.8 (3.6-5) MEQ/L Chloride 109 H (98-107) MEQ/L Carbon Dioxide 25 (22-30) MEQ/L Anion Gap 10 (5-15) MEQ/L BUN 9.0 (9-20) MG/DL Creatinine 0.7 L (0.8-1.5) MG/DL GFR Calculation 123 BUN/Creatinine Ratio 13 (6-26) RATIO Glucose 101 (75-110) MG/DL Calculated Osmolality 276 (261-280) MOSM/KG Calcium 9.1 (8.4-10.2) MG/DL Total Bilirubin 0.20 (0.20-1.30) MG/DL Icterus Index < 2 (0-7) AST 17 (17-59) U/L ALT 36 (21-72) U/L Alkaline Phosphatase 88 (38-126) U/L Troponin I < 0.012 (0-0.12) ng/ml Total Protein 7.3 (6.3-8.2) G/DL Albumin 4.1 (3.5-5.0) G/DL Globulin 3.2 (2.4-3.6) G/DL Albumin/Globulin Ratio 1.3 (1.1-2.2) RATIO Lipase 136 (23-300) U/L Plasma Lactate 2.3 H (0.6-2.2) MMOL/L Specimen Hemolysis < 15 (0-25) Ur Collection Type Urine, clean catch Urine Color Yellow (YELLOW) Urine Clarity Clear Urine pH 5.5 (5.0-8.0) Ur Specific [place] <=1.005 L (1.015-1.025) Urine Protein Negative (NEGATIVE) Urine Glucose (UA) Negative (NEGATIVE) Urine Ketones Negative (NEGATIVE) Urine Occult Blood Negative (NEGATIVE) Urine Nitrate Negative (NEGATIVE) Urine Bilirubin Negative (NEGATIVE) Urine Urobilinogen 0.2 (NORMAL) EU/DL Ur Leukocyte Esterase Negative (NEGATIVE) Urinalysis Comment Microscopic not ind. Disposition Clinical Impression: Small bowel obstruction, Abdominal pain Disposition: 02 To [facility] Condition: Stable Prescriptions: No Action Metoclopramide [Reglan] 10 mg PO QID Referrals: Harsha Rocha DO [Family Provider] - Time of Disposition: 13:49 - Seen By: physician
[2017-09-28 14:45] VITALS: BMI 22.7
[2017-09-28] MEDS ORDERED: ONDANSETRON 4 MG/2 ML INJECTION IVP PRN (14:51)
[2017-09-28] MEDS ORDERED: HYDROMORPHONE 2 MG/ML INJECTION IVP PRN (14:51)
[2017-09-28] MEDS: 1/2 NS with KCL 20mEq 1,000 ML IV SCH (14:55)
--- NOTE | 2017-09-28 16:25 | History & Physical Report ---
History of Present Illness Date: 09/28/17 Chief complaint: abdominal pain HPI: This a 42-year-old patient known to Dr. Bashir for a recent gangrenous appendix that required a laparoscopic appendectomy. He has had episodes of colicky abdominal pain that worsened up to an 8 of 10 abdominal pain that was debilitating and associated with nausea. He is not had any fevers, vomiting diarrhea, blood in stool. He denies bowel movement today but has otherwise been fairly normal. These episodes of colicky abdominal pain usually last about half an hour but this particular episode lasted longer and was more intense and unrelieved until arriving to the emergency room and receiving a half milligrams Dilaudi Review of Systems Review of systems: Patient claims to be an otherwise good health without chronic medical issues - Constitutional Constitutional: Present: anorexia. Absent: fever(s), malaise, weakness - EENMT Eyes: Absent: blurry vision, change in vision Nose: Absent: nosebleeds Mouth/Throat: Absent: sore throat, painful swallowing - Cardiovascular Cardiovascular: Absent: chest pain, palpitations, syncope - Respiratory Respiratory: Absent: cough, dyspnea on exertion - Gastrointestinal Gastrointestinal: Present: abdominal pain, change in bowel habits, constipation , nausea. Absent: coffee ground emesis, diarrhea, vomiting - Neurological Neurological: Absent: focal weakness, radicular pain - Endocrine Endocrine: Absent: cold intolerance, heat intolerance [facility] Patient Stated Medical History Obstructive Bowel Yes: CURRENT AND HX OF Other GI Yes: RUPTURED APPENDIX Clostridium Difficile Yes Clinic Medical History Appendicitis (Acute Medical) Small bowel obstruction (Acute Medical) Abdominal pain (Acute Medical) Surgical History: Appendicitis ruptured Family History: Reviewed and noncontributory - Social History Smoking status: Never smoker Substance use type: does not use Medications Home Medications Medication Instructions Recorded Confirmed Type Metoclopramide [Reglan] 10 mg PO QID 09/28/17 09/28/17 History Allergies Allergy/AdvReac Type Severity Reaction Status Date / Time No Known Drug Allergies Allergy Unknown Verified 09/28/17 10:35 Exam Vital Signs: Temperature 98.2 F 09/28/17 10:35 Pulse Rate 84 09/28/17 14:10 Respiratory Rate 19 09/28/17 14:10 Blood Pressure 118/73 09/28/17 14:10 Pulse Oximetry 98 09/28/17 14:10 Height/Weight/BMI: Height 5 ft 9 in Weight 69.8 kg Body Mass Index 22.7 - Constitutional Present: mild distress, well nourished, well developed - Routine HEENT Exam Head: Present: normocephalic, atraumatic Eye: Present: EOMI. Absent: conjunctival icterus ENT: Present: mucous membranes moist, dentition normal - Routine Neck Exam Present: supple. Absent: JVD, lymphadenopathy - Routine Respiratory Exam Present: CTA bilaterally. Absent: accessory muscle use, wheezes - Routine Cardiovascular Exam Present: RRR, S1, S2. Absent: murmur - Routine Abdominal Exam Present: tenderness, distended, rebound, guarding - Routine Extremities Exam Present: normal capillary refill - Routine Skin Exam Present: dry, warm - Routine Neurological Exam Present: alert, oriented X3, CN II-XII intact - Routine Psychiatric Exam Present: normal affect Results - Labs CBC & Chem 7: 09/28/17 11:43 09/28/17 11:43 - Imaging and Cardiology Abdominal x-ray Status: image reviewed by me Additional comments: No air fluid levels. May be a developing SBO Assessment and Plan (1) Small bowel obstruction Current visit: Yes Status: Suspected (2) Abdominal pain Current visit: Yes Status: Acute Assessment and Plan: Patient continues to have pain and with recent surgery has moderate probability that this is at least partial small bowel obstruction. Will keep overnight NPO with NG tube in place and cover the patient with antiemetics and analgesics. If the pain is improved we will get a swallow study with contrast and follow through in the morning. DISPOSITION: observation status overnight DVT Prophylaxis: SCD's - Time spent with patient Time with patient PN: 35 minutes Hospital Course Summary Disclaimer: The visit summary below is not to be considered part of the above Progress Note.
[2017-09-28] MEDS ORDERED: SORE THROAT SPRAY 20ml PO PRN (17:27)
[2017-09-28] MEDS ORDERED: BENZOCAINE/MENTHOL SORE THROAT LOZENGE MM PRN (17:27)
[2017-09-29] MEDS: 1/2 NS with KCL 20mEq 1,000 ML IV SCH ×5 (00:47→21:59)
--- NOTE | 2017-09-29 08:00 | Consultation ---
DATE OF CONSULTATION 09/28/2017 HISTORY OF PRESENT ILLNESS This patient is 42 years old. This patient did undergo laparoscopic appendectomy on 08/04/[address] Madrigal at [facility] for treatment of severe acute necrotizing appendicitis with perforation and a periappendiceal abscess. The patient was septic at this time. The patient was hospitalized at [facility] from 08/05/2017 to 08/17/2017. The patient did experience some postoperative Clostridium difficile associated diarrhea. The patient did have a prolonged postoperative ileus. He was discharged from the hospital on 08/17/2017. The patient was thought to have a postoperative ileus which was improving at the time of discharge from the hospital. The patient was discharged with a prescription for some Reglan 10 mg one p.o. q.i.d. one- half hour before meals and at bedtime to help with continued resolution of the postoperative ileus. Since going home from the hospital on 08/17/2017, the patient has had a couple of episodes of colicky abdominal pain. Each of these two episodes resolved within 30 minutes to one hour. The patient did have another episode of colicky generalized abdominal pain on . This episode of pain did persist for 3 hours. The patient did come to [facility] Emergency Room for evaluation of this episode of pain. He rated the pain at 8/10 on a pain scale. The patient denied any fever or chills. The patient was having some nausea but he had not been experiencing any vomiting. He denied any diarrhea. The patient did have a bowel movement on 09/27/2017. He denied having any bowel movements on 09/28/2017. The patient continued to have abdominal pain after receiving some intravenous Dilaudid at the emergency room. White blood cell count at the time of evaluation at the emergency room was 5700. There was no left shift of the differential. The patient did undergo a CT scan of the abdomen and pelvis at the time of evaluation at [facility] Emergency Room. This CT scan of the abdomen and pelvis does not show any abscess anywhere. There are postoperative changes from the previous appendectomy. There is a moderate amount of stool in the colon. The CT scan does show some fluid-filled loops of distal small bowel. Some of these dilated loops of distal small bowel are at the upper limits of normal. There is no free fluid anywhere. Left upper quadrant abdominal small bowel loops appear to be decompressed. There was no transition point. There was no evidence of any complete small bowel obstruction. The radiologist thought that the fluid-filled mildly dilated small bowel loops in the abdomen could just represent some gastroenteritis. The radiologist also thought that it was possible the patient could be developing some mild partial small bowel obstruction. Because of the concern that the patient might have some partial small-bowel obstruction, the patient is being admitted to [facility] at this time for further evaluation and treatment. PHYSICAL EXAMINATION VITAL SIGNS: Temperature is 97.8 degrees Fahrenheit oral. Pulse is 60. Respiratory rate is 18. Blood pressure is 126/81. Oxygen saturation is 95% on room air. Height is 1.75 meters. Weight is 69.8 kg. BMI is 22.7 kg/m2. ABDOMEN: The patient does have recent laparoscopic appendectomy incision scars. The abdomen appears to be mildly distended. The abdomen is soft. There is no abdominal tenderness at this time. LABORATORY DATA White blood cell count is 5700 with no bands. There are 54.6% neutrophils. There are 37.1% lymphocytes. Hemoglobin is 14.3. Hematocrit is 41.6. IMAGING The patient did have a CT scan of the abdomen and pelvis performed at [facility] on 09/28/2017. This shows some fluid-filled mildly dilated small bowel loops in the abdomen. There is no discrete transition point anywhere at the small bowel. There is no abscess demonstrated in the abdomen or pelvis. There is no free fluid. There is a moderate amount of stool in the colon. There are postoperative changes from the appendectomy. The radiologist did think that the fluid-filled mildly dilated small bowel loops could either represent some gastroenteritis or possibly a developing mild partial small bowel obstruction. There does not appear to be a complete small bowel obstruction. IMPRESSION 1. Generalized acute abdominal pain. 2. Fluid-filled mildly dilated small bowel loops in the abdomen demonstrated by 09/28/2017 CT scan of the abdomen and pelvis which could possibly represent a developing partial small bowel obstruction. RECOMMENDATIONS 1. Admit patient to [facility] for further evaluation at this time. 2. Start trial of nonoperative treatment for possible partial small bowel obstruction with bowel rest, intravenous fluid administration and nasogastric tube decompression of the upper gastrointestinal tract. 3. If the patient improves clinically in response to this trial of nonoperative treatment for possible small bowel obstruction then I would have the patient undergo a small bowel follow-through x-ray series to be absolutely sure that he does not have any partial small bowel obstruction. 4. Sequential compression devices for deep venous thrombosis prophylaxis. 5. If the patient does have evidence of a small bowel obstruction on small bowel x-ray series, the patient would then need to go to the operating room for exploratory laparotomy with lysis of adhesions and release of the small bowel obstruction. JOSE
--- NOTE | 2017-09-29 08:05 | XRay Report ---
Indication: ReCheck NG tube placement PROCEDURE: XR KUB: Encounter: Initial Comparison: September 28, 2017 at 1956 Findings: Nasogastric tube has been advanced now coiling within the stomach. Tip projects over the proximal body of the stomach. Bowel gas pattern is nonobstructive and nonspecific radiographically. Moderate stool in the colon. Impression: Interval advancement of the nasogastric tube which coils in the stomach and could be slightly kinked. Recommend correlation with function. There is a preliminary report by virtual radiologic. .
--- NOTE | 2017-09-29 08:06 | XRay Report ---
Indication: NG TUBE PLACEMENT- INSERTED 5 INCHES MORE PROCEDURE: XR KUB: Encounter: Initial Comparison: September 28, 2017 at 1837 Findings: The nasogastric tube coils in the cardia of the stomach. Lung bases are clear. Bowel gas pattern is unchanged. Impression: Nasogastric tube tip projects over the cardia of the stomach and is somewhat obscured by motion artifact. There is a preliminary report by virtual radi[facility]. .
--- NOTE | 2017-09-29 08:07 | XRay Report ---
Indication: NG TUBE PLACEMENT PROCEDURE: XR KUB: Encounter: Initial Comparison: September 28, 2017 CT Findings: Nasogastric tube has been placed with the tip projecting over the cardia region of the stomach. Bowel gas pattern is nonobstructive radiographically and unchanged. Impression: Nasogastric tube tip projects over the cardia of the stomach. There is a preliminary report by virtual radi[facility]. .
--- NOTE | 2017-09-29 08:08 | XRay Report ---
Indication: ?SBO PROCEDURE: XR KUB w upright: Encounter: Initial Comparison: September 28, 2017 at 2101 Findings: Nasogastric tube is again seen to be coiled in the body of the stomach and possibly kinked. Recommend correlation with tube function. No abnormally dilated small bowel. Diffuse gas and moderate stool seen throughout the colon. Bony structures are unchanged. Lung bases are clear. No free air. Impression: Nasogastric tube coils and may be kinked in the pyloric region of the stomach. Recommend correlation with tube function. .
[2017-09-29] MEDS ORDERED: DIATRIZOATE MEGLUMINE/SOD. (66%/10%) 120ml SOLN ONE (16:56)
--- NOTE | 2017-09-29 20:18 | Progress Note ---
- Date 09/29/17 Subjective: [place] Dr. Davenport this morning and he had noted greater than a leader of output from the upper G.I. through nasogastric tube. Patient had been doing reportedly better overnight and by the afternoon that I had seen him his abdominal pain was gone. He had stated that he had passed some gas but no stool to this time. He stated in [place]ian that he was hungry. Objective Vital signs: Temperature 98.1 F 09/29/17 15:35 Pulse Rate 72 09/29/17 15:35 Respiratory Rate 16 09/29/17 15:35 Blood Pressure 120/77 09/29/17 15:35 Pulse Oximetry 98 09/29/17 15:35 - Constitutional Present: well nourished, well developed - Routine HEENT Exam Eye: Present: EOMI ENT: Present: mucous membranes moist, dentition normal - Routine Respiratory Exam Present: CTA bilaterally. Absent: wheezes - Routine Cardiovascular Exam Present: RRR. Absent: murmur - Routine Abdominal Exam Present: soft, normoactive bowel sounds, non distended. Absent: tenderness - Routine Extremities Exam Present: normal capillary refill - Routine Skin Exam Present: dry, warm - Routine Neurological Exam Present: alert, oriented X3, CN II-XII intact - Routine Lymphatic Exam Lymphatic: Absent: adenopathy - Routine Psychiatric Exam Present: normal affect Results - Labs CBC & Chem 7: 09/29/17 04:20 09/29/17 04:20 - Impressions Ordered and interpreted the barium swallow study with follow-through. Oral contrast appears to follow through the entire G.I. into the rectum. Awaiting final interpretation from radiology Assessment and Plan (1) Small bowel obstruction Current visit: Yes Status: Suspected (2) Abdominal pain Current visit: Yes Status: Acute Assessment and Plan: I've spoken to Dr. Bashir earlier in the morning regarding this patient he had a large amount of nasogastric output (more than a liter). For this reason he intended to keep the patient for an additional day. By the afternoon the patient had showed some improvement and appeared clinically ready for the small bowel study with follow-through. I have reviewed the imaging myself and see contrast all the way through to the rectum. With these good findings I will advance the patient to a liquid diet tonight and at Dr. Bashir's discretion he may have the patient eat a meal in the morning to determine if the patient would tolerate discharge Hospital Course Summary Disclaimer: The visit summary below is not to be considered part of the above Progress Note. Hospital Course: Assessment and Plan (1) Small bowel obstruction Current visit: Yes Status: Suspected (2) Abdominal pain Current visit: Yes Status: Acute Assessment and Plan: Patient continues to have pain and with recent surgery has moderate probability that this is at least partial small bowel obstruction. Will keep overnight NPO with NG tube in place and cover the patient with antiemetics and analgesics. If the pain is improved we will get a swallow study with contrast and follow through in the morning. DISPOSITION: observation status overnight
--- NOTE | 2017-09-29 20:20 | XRay Report ---
Indication: SBO PROCEDURE: XR small bowel follow through: Encounter: Initial Comparison: KUB from earlier today Findings: Water-soluble contrast was administered through the patient's existing nasogastric tube. This promptly traversed nondilated loops of small bowel reaching the rectosigmoid colon by 30 minutes after administration. No abnormally dilated small or large bowel loops appreciated. Contrast continues to traverse through the colon on the one hour and two hour delayed images with some contrast remaining in the stomach. Impression: Borderline rapid intestinal transit time of less than 30 minutes. No evidence of acute bowel obstruction. .
[2017-09-30 00:47] VITALS: O2SAT 97
[2017-09-30] MEDS: 1/2 NS with KCL 20mEq 1,000 ML IV SCH (07:43)
--- NOTE | 2017-09-30 08:22 | Progress Note ---
DATE 09/29/2017 HISTORY The patient reports that he is having no abdominal pain this morning. The abdominal pain that he had at the time of admission to the hospital has resolved. The patient has not been passing any flatus. He has not had any bowel movement since admission. The patient did have a nasogastric tube inserted yesterday evening and has had a large amount of output from the nasogastric tube overnight. The nurses did encourage the patient to ambulate today, but the patient has refused to ambulate. INTAKE AND OUTPUT The patient did have 1000 ml of output from the nasogastric tube overnight last night during the last shift. Urine output is good. PHYSICAL EXAMINATION VITAL SIGNS: Temperature is 98.4 degrees Fahrenheit oral. Pulse is 61. Respiratory rate is 20. Blood pressure is 150/93. Oxygen saturation is 98% on room air. ABDOMEN: The abdomen is soft. There is minimal abdominal distention. There is no left-sided abdominal tenderness. There is minimal right-sided abdominal tenderness. LABORATORY DATA White blood cell count is 5800 with no bands. Hemoglobin is 14.4. Hematocrit is 42.1. Electrolytes are normal. Procalcitonin is less than 0.05. Serum creatinine is 0.7. IMAGING DATA The patient did undergo KUB and upright abdominal x-rays this morning. No dilated small bowel loops are seen. All of the dilated bowel loops on the CT scan of the abdomen and pelvis performed yesterday were filled with fluid and not air, so these dilated bowel loops would not be expected to be demonstrated on KUB and upright abdominal x-rays. There was diffuse gas and moderate stool throughout the colon. There was no free air. IMPRESSION 1. Acute generalized abdominal pain present at the time of admission to the hospital which is now resolved. 2. Fluid-filled mildly dilated small bowel loops in the abdomen demonstrated by 09/28/2017 CT scan of the abdomen and pelvis which were thought by the radiologist to possibly represent a developing partial small bowel obstruction. RECOMMENDATIONS 1. Continue nonoperative treatment for partial small bowel obstruction with bowel rest, intravenous fluid administration and nasogastric tube decompression of the upper gastrointestinal tract for a while longer since the patient did have such a large output from the nasogastric tube overnight last night. I would continue this treatment throughout the day today. 2. Continue sequential compression devices for deep venous thrombosis prophylaxis. 3. Continue to encourage the patient to ambulate. The patient has refused to ambulate so far today. 4. Small bowel x-ray series when the nasogastric tube output has decreased to evaluate the patient further for partial small bowel obstruction. We might be able to do this tomorrow. MATEUSD
[2017-09-30 08:24] VITALS: BP 125/78; PULSE 68; RESP 20; TEMP 98.3
--- NOTE | 2017-09-30 13:26 | Discharge Summary ---
Discharge Information Date of admission: 09/29/17 11:45 Anticipated date of discharge: 09/30/17 Attending Physician: Jhony Carter MD Primary care physician: Harsha Rocha, DO - Discharge Diagnosis (1) Small bowel obstruction Status: Resolved (2) Abdominal pain Status: Acute History of Present Illness HPI: This a 42-year-old patient known to Dr. Madrigal for a recent gangrenous appendix that required a laparoscopic appendectomy. He has had episodes of colicky abdominal pain that worsened up to an 8 of 10 abdominal pain that was debilitating and associated with nausea. He is not had any fevers, vomiting diarrhea, blood in stool. He denies bowel movement today but has otherwise been fairly normal. These episodes of colicky abdominal pain usually last about half an hour but this particular episode lasted longer and was more intense and unrelieved until arriving to the emergency room and receiving a half milligrams Dilaudid 09/30/17 13:23 Objective Vital signs: Temperature 98.3 F 09/30/17 08:00 Pulse Rate 68 09/30/17 08:00 Respiratory Rate 20 09/30/17 08:00 Blood Pressure 125/78 09/30/17 08:00 Pulse Oximetry 97 09/30/17 08:00 Height/Weight/BMI: Weight 64.2 kg - Constitutional Present: well nourished, well developed - Routine HEENT Exam Eye: Present: EOMI ENT: Present: mucous membranes moist, dentition normal - Routine Respiratory Exam Present: CTA bilaterally. Absent: wheezes - Routine Cardiovascular Exam Present: RRR. Absent: murmur - Routine Abdominal Exam Present: soft, normoactive bowel sounds, non distended. Absent: tenderness - Routine Extremities Exam Present: normal capillary refill - Routine Skin Exam Present: dry, warm - Routine Neurological Exam Present: alert, oriented X3, CN II-XII intact - Routine Lymphatic Exam Lymphatic: Absent: adenopathy - Routine Psychiatric Exam Present: normal affect Hospital Course This is a general summary of the patient's hospital course. For more details refer to the complete medical record. Hospital course: Assessment and Plan (1) Small bowel obstruction Current visit: Yes Status: Suspected (2) Abdominal pain Current visit: Yes Status: Acute Assessment and Plan: Patient continues to have pain and with recent surgery has moderate probability that this is at least partial small bowel obstruction. Will keep overnight NPO with NG tube in place and cover the patient with antiemetics and analgesics. If the pain is improved we will get a swallow study with contrast and follow through in the morning. DISPOSITION: observation status overnight 09/29/[address]'ve [address] Bashir earlier in the morning regarding this patient he had a large amount of nasogastric output (more than a liter). For this reason he intended to keep the patient for an additional day. By the afternoon the patient had showed some improvement and appeared clinically ready for the small bowel study with follow-through. I have reviewed the imaging myself and see contrast all the way through to the rectum. With these good findings I will advance the patient to a liquid diet tonight and at Dr. Madrigal's discretion he may have the patient eat a meal in the morning to determine if the patient would tolerate discharge 09/30/2017 patient was able to take clear liquids overnight. Diet advanced by Dr. Davenport to solid breakfast which the patient tolerated well. He had multiple trips to the bathroom with stool movement in the morning and abdomen feels entirely improved. Physical exam now benign in patient is able to discharge with routine follow-up Time spent with patient: discharge greater than 30 minutes DVT Prophylaxis: SCD's Discharge Plan - Discharge Disposition Disposition: Discharged Home, Self-Care *Condition: Stable *Reason For Visit: sbo - Discharge Medications *Discharge Medications: No Action Metoclopramide [Reglan] 10 mg PO QID - Discharge Packet/Instructions *Pending Lab/Results: No Pending Lab - Referrals/Follow Up *Referrals/Follow Up: Dixon Madrigal MD [Physician] - - Patient Handouts - Dismissal Complete Discharge Instructions are:: Complete
--- NOTE | 2017-09-30 14:01 | Progress Note ---
DATE: 09/30/2017 HISTORY This patient did undergo a small bowel follow-through x-ray series late yesterday afternoon. This showed borderline rapid intestinal transit time of less than 30 minutes. There was no evidence of any bowel obstruction. The contrast did go through nondilated loops of small bowel reaching the rectosigmoid junction by 30 minutes after administration. No abnormally dilated small or large bowel loops were appreciated anywhere. The nasogastric tube of the patient was clamped after the small bowel follow-through x-ray series. The patient was started on a clear liquid diet yesterday evening. The patient has tolerated a clear liquid diet well throughout the night. The nasogastric tube was removed this morning. The patient had a full liquid diet with toast and crackers for breakfast and he tolerated this well. The patient denies any type of abdominal pain at this time. He has been having multiple bowel movements. He has no nausea or vomiting. The patient does have a regular diet ordered for lunch. PHYSICAL EXAMINATION VITAL SIGNS: Temperature is 98.3 degrees Fahrenheit oral. Pulse is 68. Respiratory rate is 20. Blood pressure is 125/78. Oxygen saturation is 97% on room air. ABDOMEN: The abdomen is soft and nontender. IMPRESSION 1. Resolution of acute generalized abdominal pain which had been present at the time of admission to the hospital. 2. No evidence of partial small bowel obstruction or complete small bowel obstruction demonstrated on 09/29/2017 small bowel follow-through x-ray series. RECOMMENDATION If the patient tolerates his lunch well, I think it would be fine to dismiss the patient from [facility] this afternoon. The process which appeared to be present at the time of admission to the hospital appears to be resolved at this time. I did tell the patient and his that I think it is fine for the patient to return to work without restrictions starting tomorrow. [facility]
== END 2017-09-30 12:40 | disposition home or self-care (01) | DRG 390 ==
LOC: SRG 10:31 → ED 10:31 → SRG 14:35
PROVIDERS: ADMIT Family Medicine; ATTEND Family Medicine